=== PATIENT | female | born 1940 | race Caucasian/White ===

== ENCOUNTER 2016-10-29 13:44 | Inpatient (IN) | payer MEDICARE, OTHER ==
[~2016-10-29] VITALS: Ht 167.6 cm; Wt 88.3 kg
[~2016-10-29 13:44] MED LIST: ALEVE220 MG; ALIGN4 MG PO; ASPIRIN EC81 MG; ASPIRIN325 MG PO; BAYER CHEWABLE81 MG PO; BENICAR20 MG; BETAPACE160 MG PO; COZAAR100 MG PO; DEXILANT60 MG PO; EFFIENT10 MG PO; HUMALOG 30100 UNITS/; HUMALOG 30100 UNITS/ SC; HYDROCODON-ACE1 EAC7 PO; IMODIUM2 MG PO; KLONOPIN0.5 MG PO; KLOR-CON 1010 MEQ; KLOR-CON 1010 MEQ PO; LANTUS INSULIN10 ML; LANTUS INSULIN10 ML SC; LANTUS SOL100 UNIT/1 SC; LASIX20 MG PO; METAMUCIL1042 GM; METOPROLOL TART50 MG PO; PLAVIX75 MG PO; PRADAXA150 MG PO; PRAVACHOL40 MG PO; RESTORIL15 MG PO; TRICOR145 MG PO; ULTRAM50 MG PO; VITAMIN B-1000 MCG/M IM; XANAX0.25 MG; XANAX0.25 MG PO; [UNRECOGNIZED DRUG - OTHER]
[2016-10-29 15:02] LABS: BASOPHILS 0.1 % (0.0-2.0); EOSINOPHILS 0 % (0-7); HEMATOCRIT 56.1 % (36.0-48.0); HEMOGLOBIN 17.9 g/dL (12-16); IMMATURE GRANULOCYTES 1.5 % (0-5); LYMPHOCYTES 9.1 % (15-50); MCH 30.6 pg (26.0-34.0); MCHC 31.9 g/dL (31.0-37.0); MCV 95.9 fL (80.0-100.0); MEAN PLATELET VOLUME 10.7 fL (7.4-10.4); MONOCYTES 5.6 % (2-11); NEUTROPHILS 83.7 % (40-80); RBC 5.85 10x6/uL (4.00-5.40); RDW 15.1 % (11.5-14.5); WBC 18.5 10x3/uL (4.8-10.8)
[2016-10-29 15:11] LABS: PLATELET COUNT 301 10x3/uL (130-400)
[2016-10-29 15:14] LABS: APPEARANCE CLEAR (CLEAR); COLOR YELLOW (YELLOW); LEUKOCYTE ESTERASE NEGATIVE (NEGATIVE); NITRITE NEGATIVE (NEGATIVE); PROTEIN 1+ mg/dL (NEGATIVE)
[2016-10-29 15:15] LABS: BILIRUBIN NEGATIVE (NEGATIVE); GLUCOSE 1000 mg/dL (NEGATIVE); KETONE MODERATE mg/dL (NEGATIVE); UROBILINOGEN NORMAL (NORMAL)
[2016-10-29 15:18] LABS: BACTERIA MODERATE /hpf (NONE SEEN); EPITHELIAL CELLS 0-5 /hpf (0-5); WHITE CELLS - URINE 0-5 /hpf (0-5)
[2016-10-29 15:28] LABS: ALBUMIN 3.8 g/dL (3.4-5.0); ALKALINE PHOSPHATASE 126 U/L (46-116); ALT (SGPT) 19 U/L (10-68); BILIRUBIN - TOTAL 0.71 mg/dL (0.2-1.3); CHLORIDE - SERUM 97 mmol/L (98-107); CKMB 2.2 U/L (0.0-3.6); CREATINE KINASE 66 UL (21-215); CREATININE - SERUM 1.6 mg/dL (0.6-1.3); POTASSIUM - SERUM 4.6 mmol/L (3.5-5.1); PROTEIN - SERUM 8.1 g/dL (6.4-8.2); SODIUM 136 mmol/L (136-145); UREA NITROGEN 26 mg/dL (7-18); eGFR NON AFRICAN AMERICAN 33 mL/min (90-120)
[2016-10-29 15:29] LABS: CALC OSMOLALITY 306 mosm/kg (275-300); TROPONIN-I < 0.017 ng/mL (0.000-0.060)
[2016-10-29 15:30] LABS: CARBON DIOXIDE 9.1 mmol/L (21.0-32.0); GLUCOSE 636 mg/dL (74-106)
[2016-10-29 19:00] VITALS: BP 161/57; BP 161/59
--- NOTE | 2016-10-29 19:00 | NUR ---
REC'D REPORT AND COMPLETED ASSESSMENT OF PT, SEE FLOWSHEET FOR ALL FINDINGS. PT DISORIENTED TO SITUATION AND HAS PERIODS OF CONFUSION. FOLLOWS COMMANDS. GLASSESS ON FACE, BOTH UPPPER AND LOWER PARTIALS IN MOUTH. SHALLOW RESPIRATIONS, NASAL CANNULA @ 2L, SPO2 97, CLEAR LUNG SOUNDS. BOWEL SOUNDS HYPOACTIVE X4, PT UNABLE TO HAVE BM SINCE 10/19/16. NPO PER ORDERS WITH THE EXCEPTION OF ICE CHIPS. ORAL CARE COMPLETED. GENERALIZED WEAKNESS NOTED. PT REPOSITIONED IN BED FOR COMFORT WITH BONY PROMINENCES BRIDGED. INSULIN GTT INFUSING @ 7 UNITS/HR, FSBS Q HR PER PROTOCOL. NO S/S OF ACUTE DISTRESS AT THIS TIME. DENIES FURTHER NEEDS AT THIS TIME. CALL LIGHT AND BEDSIDE TABLE WITHIN PT REACH. CPOC.
[2016-10-29 19:59] LABS: ANION GAP 33.2 mmol/L (8-16); CALCIUM 8.9 mg/dL (8.5-10.1); CREATININE - SERUM 1.3 mg/dL (0.6-1.3); POTASSIUM - SERUM 4.9 mmol/L (3.5-5.1)
[2016-10-29 20:00] VITALS: BP 161/57; BP 163/63
[2016-10-29 20:03] LABS: CARBON DIOXIDE 7.7 mmol/L (21.0-32.0)
[2016-10-29 20:48] VITALS: BP 161/57; BMI 29.1
[2016-10-29 21:00] VITALS: BP 132/55; BP 161/57
--- NOTE | 2016-10-29 21:00 | NUR ---
PT HISTORY COMPLETE WITH INFORMATION FROM JOEY ROMERO, PT DAUGHTER. INSULIN GTT ADJUSTED TO 16 UNITS/HR. PT REPOSITIONED FOR COMFORT. VSS, NO C/O PAIN AT THIS TIME. VOICES NO NEEDS AT THIS TIME. CALL LIGHT AND BEDSIDE TABLE WITHIN PT REACH. CPOC.
[2016-10-29 22:00] VITALS: BP 121/53
[2016-10-29 22:24] LABS: ANION GAP 29.9 mmol/L (8-16); CALCIUM 9.1 mg/dL (8.5-10.1); CARBON DIOXIDE 10.9 mmol/L (21.0-32.0); CREATININE - SERUM 1.2 mg/dL (0.6-1.3)
[2016-10-29 22:34] LABS: POTASSIUM - SERUM 3.8 mmol/L (3.5-5.1)
[2016-10-29 23:00] VITALS: BP 105/48
--- NOTE | 2016-10-29 23:00 | NUR ---
REASSESSMENT COMPLETE, SEE FLOWSHEET FOR ALL FINDINGS. NO CHANGES AT THIS TIME. PT REMAINS ON INSULIN GTT AT THIS TIME WITH BS TRENDING DOWN. VSS, DENIES PAIN AT THIS TIME. RESTING QUIETLY WITH UNLABORED RESPIRATIONS. ORAL CARE PROVIDED. PT REPOSITIONED FOR COMFORT. DENIES FURTHER NEEDS AT THIS TIME. CALL LIGHT AND BEDSIDE TABLE WITHIN PT REACH. CPOC.
[2016-10-30] VITALS (17 sets, daily range): BP systolic 86–130; BP diastolic 42–65; Ht 167.6 cm; Wt 88.3 kg
--- NOTE | 2016-10-30 03:00 | NUR ---
REASSESSMENT COMPLETE, SEE FLOWSHEET FOR ALL FINDINGS. PT SLEEPING QUIETLY WITH UNLABORED RESPIRATOINS. VSS, NO S/S OF DISTRESS OR PAIN AT THIS TIME. INSULIN GTT INFUSING. CALL LIGHT AND BEDSIDE TABLE WITHIN PT REACH. CPOC.
[2016-10-30 03:41] LABS: CALCIUM 8.9 mg/dL (8.5-10.1); CREATININE - SERUM 1.4 mg/dL (0.6-1.3); POTASSIUM - SERUM 3.5 mmol/L (3.5-5.1)
[2016-10-30 03:51] LABS: ANION GAP 16.2 mmol/L (8-16); CARBON DIOXIDE 18.3 mmol/L (21.0-32.0)
--- NOTE | 2016-10-30 05:00 | NUR ---
PT RESTING QUIETLY WITH UNLABORED RESPIRATIONS, VSS. PT REPOSITIONED FOR COMFORT. ORAL CARE ADM. DENIES PAIN. DENIES FURTHER NEEDS AT THIS TIME. CALL LIGHT AND BEDSIDE TABLE WITHIN PT REACH. CPOC.
--- NOTE | 2016-10-30 08:11 | HP ---
PATIENT: GARCIA MÁRQUEZ MEDICAL RECORD: [id number] ACCOUNT: [id number] LOCATION:[facility] D.2301 : 38 ADMISSION DATE: 10/29/16 HISTORY AND PHYSICAL EXAMINATION REASON FOR ADMISSION: Confusion. HISTORY OF PRESENT ILLNESS: The patient is a 76-year-old female with history of type 2 diabetes mellitus, ASHD and chronic atrial fibrillation. Her daughter states she has been living at home independently. They went on a holiday trip to see family in [place], but she forgot her insulin. She did not call to refill it. They were gone 4 days when she returned home. Her daughter assumed she resumed her medications. Apparently, she did not. She called the office for an appointment the last 2 days, but has not showed. She apparently brought in by a friend who knows she was very confused today. She presented to the Emergency Room with a blood sugar near 700, acidotic, pH of 7.19 and small serum ketones. She is now admitted to the ICU for treatment of diabetic ketoacidosis due to noncompliance. Her daughter states she has been confused for the last few days and thought she might have a stroke, but did not bring her in. PAST MEDICAL HISTORY: Type 2 diabetes mellitus, chronic AFib flutter, sick sinus syndrome with pacemaker, CAD with left circumflex PTCA 2011, mitral and tricuspid regurgitation, hyperlipidemia, hypertension, depression, postmenopausal and IBS. PAST SURGICAL HISTORY: TAHBSO, pacemaker placement, generator replacement of pacemaker remotely, appendectomy, hemorrhoidectomy, bilateral cataract surgery, repair of deviated septum and PIE MAKER MACHINE stent of the left circumflex in November 2015. FAMILY HISTORY: The patient's sister from myeloma and amyloidosis. ALLERGIES: ACTOS, ALTACE, BENADRYL, CLARITIN, GLUCOPHAGE, KEFLEX, NASONEX, PENICILLIN, ____, SULFA, ULTRAM AND ZOCOR. SOCIAL HISTORY: She is . She lives alone. She has a daughter living in town nonsmoker and nondrinker lifelong. HOME MEDICATIONS: Lasix 20 mg daily, Dexilant 60mg a day, sotalol 160 mg p.o. b.i.d., TriCor 145 daily, pravastatin 40 mg at h.s., Klor-Con 10 mEq a day, Humalog sliding scale, insulin sensitive, alprazolam 0.25 mg t.i.d. p.r.n. anxiety, losartan 100 mg daily, vitamin B12 injection 1 cc every 2 weeks, last Lantus insulin dose was 40 units in the morning, 42 in the evening. She is on Effient 10 mg p.o. q.a.m., metoprolol 25 mg p.o. daily, Klonopin 0.5 mg p.o. daily p.r.n. and tramadol 50 mg q.6 hours p.r.n. pain. REVIEW OF SYSTEMS: GENERAL: Obtained from the daughter generally. She has been well until 2 weeks ago and she is noncompliant. She has been confused for the last several days. No fever documented. HEENT: No recent visual change, speech is somewhat slurred. CARDIAC: No chest pain or palpitations. GASTROINTESTINAL: She has had no bowel movement about 6 or 8 days. She has not had vomiting, but has been nauseated. ENDOCRINE: She has had polyuria and polydipsia. HISTORY AND PHYSICAL [id number] GARCIA MÁRQUEZ PSYCHIATRIC: She has been confused, not anxious. NEUROLOGIC: Confusion with some slurring of her speech intermittently. No localizing motor deficits appreciated. INTEGUMENT: No rash or itching. PHYSICAL EXAMINATION: VITAL SIGNS: Blood pressure 130/60, heart rate 80-90 and irregular, temperature 98 degrees Fahrenheit. GENERAL: The patient is confused, but no acute distress. He responds verbally, but it is hard to understand. HEENT: Normocephalic. Eyes are clear with lens implants OU. Sclerae nonicteric. Oropharynx has dry mucous membranes. NECK: Supple, without bruits or masses. CHEST: Distant breath sounds without wheeze or rales. HEART: Regular rate without murmur. ABDOMEN: Solid, protuberant, decreased bowel sounds, nondistended and nontender. EXTREMITIES: No CC&E. SKIN: She has multiple ____, no petechiae. NEUROLOGIC: She is disoriented to person, place and time. She moves her arms and legs without difficulty. No clonus noted. Speech is somewhat slurred. LABORATORY DATA: Blood gas with pH of 7.14, ____, home oxygen and base excess is -22. Glucose is 619 and potassium 4.5. H&H is 17.8 and 52 respectively. Lipase is 482. Ketones in serum are small. White count is 18.5 and platelet count is 301,000. Alkaline phosphatase is 126. Ketones is moderate in the urine, 10-25 red cells, 0-5 white cells, and moderate bacteria. Abdominal x-ray shows no acute intraabdominal pathology. Chest x-ray, no active disease. ASSESSMENT: 1. Diabetic ketoacidosis due to noncompliance, most likely. 2. Type 2 diabetes mellitus. 3. Metabolic syndrome. 4. History of coronary artery disease. 5. Intermittent atrial fibrillation flutter. 6. Sick sinus syndrome. 7. Depression. 8. Essential hypertension. 9. Mitral and tricuspid regurgitation. 10. Irritable bowel syndrome. PLAN: The patient is being treated emergently in the ER. We will transfer to the ICU for DKA protocol. Blood cultures have been obtained and as well as urine cultures. Empiric Levaquin. Further workup pending clinical course. I discussed her course with her daughter. TRANSINT:[id number] Voice Confirmation ID: [id number] DOCUMENT ID: [id number] HISTORY AND PHYSICAL [id number] GARCIA MÁRQUEZ TIMOTHY MD at 0811 CC: [id number] DICTATION DATE: 10/29/161818 READING COACH: 10/29/16 [address] IN [address] [address]
[2016-10-30 09:56] LABS: ANION GAP 17.2 mmol/L (8-16); CALCIUM 9.3 mg/dL (8.5-10.1); CARBON DIOXIDE 19.8 mmol/L (21.0-32.0); CREATININE - SERUM 1.2 mg/dL (0.6-1.3)
--- NOTE | 2016-10-30 10:42 | NUR ---
PATIENT IS SLEEPING AND UNABLE TO ANSWER QUESTIONS. PATIENT'S NURSE STATES THAT PATIENT IS GROGGY AND HAS DIFFICULTY ANSWERING QUESTIONS WHEN SHE AROUSES DUE TO ELEVATED SODIUM. I ATTEMPTED TO PHONE PATIENT'S DAUGHTER, JOEY, AT [phone] BUT DID NOT GET AN ANSWER. CM TO FOLLOW.
--- NOTE | 2016-10-30 13:25 | NUR ---
Is the patient Alert and Oriented? No 0 * How many steps to enter\exit or inside your home? 2 0 * PCP DR. STONE 0 * [facility] [address] * Preadmission Environment Home with Family 0 * ADLs Independent 0 * Equipment Rolling Walker Wheelchair 0 * List name and contact numbers for known caregivers / representatives who currently or will assist patient after discharge: DAUGHTER: JOEY HOPPER [phone] * Community resources currently utilized None 0 * Additional services required to return to the preadmission environment? No 0 * Can the patient safely return to the preadmission environment? Yes 0 * Has this patient been hospitalized within the prior 30 days at any hospital? No 0 [facility] I SPOKE WITH PATIENT'S DAUGHTER, JOEY. SHE STATES THAT SHE WILL BE AVAILABLE TO DRIVE HER MOTHER HOME AT DISCHARGE. PATIENT LIVES AT HOME ALONE. HER DAUGHTER STATES THAT HER MOTHER HAS SEEMED DEPRESSED SINCE HER . SHE THEN STARTED TO HAVE ISSUE WITH NOT TAKING CARE OF HERSELF. PATIENT'S PCP IS DR. STONE. [facility] [address] SHE HAS A WALKER AND W/C BUT HAS NOT BEEN USING THEM. THERE ARE 2 STEPS TO ENTER PATIENT'S HOME. SHE WILL BE RETURNING HOME BUT HER DAUGHTER WILL BE ASSISTING HER AND STAYING WITH HER IN THE EVENINGS. SHE WOULD LIKE A REFERRAL TO HOME HEALTH AT DISCHARGE.
--- NOTE | 2016-10-30 15:29 | NUR ---
0800 AM ASSESMENT IS COM PLETE SEE FLOW SHEET FOR FINDINGS.. PT IS LETHARGIC BUT ONCE AROUSED WILL ANSWER APPROPRIATLY TO QUESTIONS.. BS DONE INSULIN DRIP DCd AT THIS TIME.. DR STONE IN TO SEE PT AND ORDER RECIEVED.. FSBS PER SS.. 0900 DAUGHTE IN TO SEE PT AND UPDATE IS GIVEN.. PT AND DAUGHTER STATES THAT PT HAS NOT HAD BM FOR 1 WEEK TO 10 DAYS.. SIPS H20 GIVEN PT REFUSES DIET AT HIS TIME STATING NAUSEA.. 0930 PT IS VOMITING WATER.. PARTIAL BATH AND COMPLETE LINEN CHANE IS DONE.. 1030 PT IS RESTING QUIETLY AT THIS TIME 1200 BS DONE AT THIS TIME AND SS INSULIN COVER WITHOUT VISITOR AT THIS OLY.. PT IS REFUSING LEAR LIQUID DIET. SIPS H20 GIEN.. 1400 DR STONE CALLED AND ORERS RECIEVED AFTER UPDATE GIVEN RE PT BOWEL PATTERN.. 1500 WIHTOUT VISITORS.. 1520 MIRALAX GIVEN AND MOM.. PT IS MUCH MORE ALERT AND RESPONSIVE THAN EARLIER IN THE SHIFT.. PT IS WITHOUT C/O
--- NOTE | 2016-10-30 18:16 | NUR ---
1630 PT INCONTINENT OF LIQUID STOOL AFTER TAKING MIRALAX AND MOM.. BATH WITH LINEN CHANGE DONE..INSULIN COVER FOR BS 1700 CLEAR LIQUID DIET SERVED AND PT IS FEEDING SELF.. 1800 75% DIET EATEN... DAUGHTER IN TO SEE PT.. UPDATE IS GIVEN..
--- NOTE | 2016-10-30 20:00 | NUR ---
REPORT CALLED TO TANNER MUNROE. VSS. SR ON THE MONITOR. AOX4. DENIES NEEDS. TRANSFER TO 2201 VIA BED.
--- NOTE | 2016-10-30 21:30 | NUR ---
PATIENT RECEIVED TO ROOM FROM ICU VIA STRETCHER WITH HOSPITAL STAFF. AAOX4. RR EVEN AND UNLABORED. 0 S/S OF DISTRESS. PATIENT STATES PAIN IS A 4/10 IN HER ABDOMEN BUT DOES NOT WANT MEDICATION FOR IT. SHIELDS DRAINING TO GRAVITY. IV TO RIGHT AC S/L. IV TO LEFT AC PATENT AND INFUSING D5 1/2NS @ 100. ORIENTED PATIENT TO ROOM. NO OTHER NEEDS AT THIS TIME.
--- NOTE | 2016-10-30 23:00 | NUR ---
ZOFRAN GIVEN FOR NAUSEA. WILL CONTINUE TO MONITOR.
--- NOTE | 2016-10-30 23:05 | NUR ---
ASSESSMENT COMPLETE. PUT SCD'S ON PATIENT PER ORDER. HEART MEDICATIONS HELD FOR LOW BP. 12 UNITS HUMULIN GIVEN FOR BS OF 242 PER SS. NO OTHER NEEDS AT THIS TIME.
[2016-10-31] VITALS: BP 107/53
[2016-10-31 04:00] VITALS: BP 111/55
[2016-10-31 05:34] LABS: BASOPHILS 0 % (0.0-2.0); EOSINOPHILS 0.1 % (0-7); IMMATURE GRANULOCYTES 0.3 % (0-5); LYMPHOCYTES 9.7 % (15-50); MCH 30.2 pg (26.0-34.0); MCHC 34.2 g/dL (31.0-37.0); MONOCYTES 9.7 % (2-11); NEUTROPHILS 80.2 % (40-80)
[2016-10-31 05:35] LABS: HEMATOCRIT 40.9 % (36.0-48.0); MCV 88.3 fL (80.0-100.0); PLATELET COUNT 175 10x3/uL (130-400); RBC 4.63 10x6/uL (4.00-5.40); WBC 11.6 10x3/uL (4.8-10.8)
[2016-10-31 06:01] LABS: ANION GAP 13.2 mmol/L (8-16); CALCIUM 8.5 mg/dL (8.5-10.1); CARBON DIOXIDE 22.1 mmol/L (21.0-32.0); CREATININE - SERUM 0.9 mg/dL (0.6-1.3)
[2016-10-31 06:05] LABS: POTASSIUM - SERUM 3.3 mmol/L (3.5-5.1)
--- NOTE | 2016-10-31 07:40 | NUR ---
PATIENT RECEIVED IN LOW DENG POSITION RESTING WITH EYES CLOSED. RESPIRATIONS EVEN AND UNLABORED. SIDE RAILS UP X2. BED IN LOW POSITION. CALL LIGHT IN REACH.
[2016-10-31 08:09] VITALS: BP 133/47
--- NOTE | 2016-10-31 08:30 | NUR ---
ALERT IN BED. TOLERATING CLEAR LIQUIDS. SCHEDULED MEDICATION ADMINISTERED WELL PRN ZOFRAN. NO NEEDS VOICED. SIDE RAILS UP X2. BED IN LOW POSITION. CALL LIGHT IN REACH.
--- NOTE | 2016-10-31 09:30 | NUR ---
PATIENT HAD SMALL BM. REFUSES ENEMAS AT THIS TIME. CALL LIGHT IN REACH.
--- NOTE | 2016-10-31 11:18 | NUR ---
ACCU CHECK 312. INSULIN PER SLIDING SCALE. DENIES NEEDS. SIDE RAILS UP X2. BED IN LOW POSITION. CALL LIGHT IN REACH. DAUGHTER AT BEDSIDE.
[2016-10-31 12:12] VITALS: BP 110/49
--- NOTE | 2016-10-31 14:14 | NUR ---
POTASSIUM 3.2, KCL RIDER INTIATED PER PROTOCOL. PATIENT CONTINUE TO REFUSE ORDERED ENEMA. AGREEABLE TO TRY PRUNE JUICE. DENIES NEEDS. SIDE RAILS UP X2. BED IN LOW POSITION. CALL LIGHT IN REACH.
[2016-10-31 16:45] VITALS: BP 136/66
--- NOTE | 2016-10-31 17:00 | NUR ---
PATIENT RESTING QUIETLY WITH EYES CLOSED. RESPIRATIONS EVEN AND UNLABORED. WAKES EASY. KCL RIDER #3 INITIATED. TOLERATING WELL. DENIES NEEDS. SIDE RAILS UP X2. BED IN LOW POSITION. CALL LIGHT IN REACH.
--- NOTE | 2016-10-31 18:15 | NUR ---
PATIENT UP TO BSC ASSIST X1. CALL LIGHT IN REACH. NURSE AID AT BEDSIDE. DENIES NEEDS.
--- NOTE | 2016-10-31 19:00 | NUR ---
PATIENT SLEEPING SUPINE IN BED. HOB 20 DEGREES. AROUSES TO VOICE. RR EVEN AND UNLABORED. 0 S/S OF DISTRESS. DENIES PAIN AT THIS TIME. IV TO RIGHT AC S/L WITH NO REDNESS OR SWELLING. IV TO LEFT AC PATENT AND INFUSING D51/2 @ 100. SHIELDS DRAINING TO GRAVITY. SCD'S IN ROOM BUT OFF. SRX2. BED LOW. CALL LIGHT WITHIN REACH.
[2016-10-31 20:30] VITALS: BP 116/60
[2016-11-01 00:08] VITALS: BP 129/57
[2016-11-01 04:30] VITALS: BP 110/50
[2016-11-01 05:02] LABS: BASOPHILS 0.2 % (0.0-2.0); EOSINOPHILS 0.5 % (0-7); HEMATOCRIT 39.3 % (36.0-48.0); HEMOGLOBIN 13.3 g/dL (12-16); IMMATURE GRANULOCYTES 0.2 % (0-5); LYMPHOCYTES 25.6 % (15-50); MCH 30.1 pg (26.0-34.0); MCHC 33.8 g/dL (31.0-37.0); MCV 88.9 fL (80.0-100.0); MEAN PLATELET VOLUME 9.9 fL (7.4-10.4); MONOCYTES 13.9 % (2-11); NEUTROPHILS 59.6 % (40-80); PLATELET COUNT 155 10x3/uL (130-400); RBC 4.42 10x6/uL (4.00-5.40); RDW 15.6 % (11.5-14.5)
[2016-11-01 05:07] LABS: WBC 6.5 10x3/uL (4.8-10.8)
[2016-11-01 05:20] LABS: CALCIUM 8.8 mg/dL (8.5-10.1); CARBON DIOXIDE 25.3 mmol/L (21.0-32.0); CHLORIDE - SERUM 109 mmol/L (98-107); CREATININE - SERUM 0.7 mg/dL (0.6-1.3); SODIUM 142 mmol/L (136-145); eGFR NON AFRICAN AMERICAN 86 mL/min (90-120)
[2016-11-01 05:23] LABS: CALC OSMOLALITY 285 mosm/kg (275-300); GLUCOSE 159 mg/dL (74-106); UREA NITROGEN 12 mg/dL (7-18)
--- NOTE | 2016-11-01 07:00 | NUR ---
PATIENT RECEIVED IN LOW DENG POSITION RESTING WITH EYES CLOSED. RESPIRATIONS EVEN AND UNLABORED. SIDE RAILS UP X2. BED IN LOW POSITION. CALL LIGHT IN REACH.
[2016-11-01 08:30] VITALS: BP 112/53
--- NOTE | 2016-11-01 08:43 | NUR ---
PATIENT REPOSITIONED IN BED. WELL TOLERATED. BREAKFAST TRAY SET UP. SCHEDULED MEDICATION ADMINISTERED. DENIES NEEDS. SIDE RAILS UP X2. BED IN LOW POSITION. CALL LIGHT IN REACH.
--- NOTE | 2016-11-01 11:04 | NUR ---
ALERT IN BED WITH DAUGHTER PRESENT. ACCU CHECK 199. INSULIN PER SLIDING SCALE. DENIES NEEDS. BED IN LOW POSITION. CALL LIGHT IN REACH.
[2016-11-01 12:30] VITALS: BP 117/58
--- NOTE | 2016-11-01 13:35 | NUR ---
PATIENT UP AMBULATING IN HALLWAY WITH PT. NO SIGNS OF DISTRESS NOTED. WILL CONTINUE TO MONITOR.
[2016-11-01 15:30] VITALS: BP 111/52
--- NOTE | 2016-11-01 16:28 | NUR ---
ACCU CHECK 165. 8 UNITS PER SLIDING SCALE. DENIES NEEDS. BED IN LOW POSITION. CALL LIGHT IN REACH.
--- NOTE | 2016-11-01 19:25 | NUR ---
PT RECEIVED SLEEPING. NO SIGNS OF DISTRESS. RESPIRATIONS EVEN AND UNLABORED. BED LOW, CALL LIGHT IN REACH.
[2016-11-01 20:00] VITALS: BP 130/73
--- NOTE | 2016-11-01 21:09 | NUR ---
PT RESTING IN BED. NIGHT MEDS GIVEN. DIABETIC SNACK GIVEN. DENIES NEEDS AT THIS TIME. WILL MONITOR.
--- NOTE | 2016-11-01 23:21 | NUR ---
PT SLEEPING. NO SIGNS OF DISTRESS. BED LOW, CALL LIGHT IN REACH.
[2016-11-02] VITALS: BP 124/66
--- NOTE | 2016-11-02 01:58 | NUR ---
PT SLEEPING. NO SIGNS OF DISTRESS. BED LOW, CALL LIGHT IN REACH.
[2016-11-02 04:00] VITALS: BP 111/52
[2016-11-02 06:30] LABS: CALC OSMOLALITY 288 mosm/kg (275-300); CALCIUM 8.7 mg/dL (8.5-10.1); CHLORIDE - SERUM 110 mmol/L (98-107); CREATININE - SERUM 0.7 mg/dL (0.6-1.3); GLUCOSE 120 mg/dL (74-106); MAGNESIUM - SERUM 1.9 mg/dL (1.8-2.4); SODIUM 145 mmol/L (136-145); UREA NITROGEN 11 mg/dL (7-18); eGFR NON AFRICAN AMERICAN 86 mL/min (90-120)
[2016-11-02 06:32] LABS: POTASSIUM - SERUM 3.3 mmol/L (3.5-5.1)
--- NOTE | 2016-11-02 07:25 | NUR ---
PATEINT RECEIVED IN LOW DENG POSITION READING NEWSPAPER. NO SIGNS OF DISTRESS NOTED. DENIES NEEDS. SIDE RAILS UP X2. BED IN LOW POSITION. CALL LIGHT IN REACH.
[2016-11-02 08:13] VITALS: BP 132/62
--- NOTE | 2016-11-02 08:25 | NUR ---
PATIENT REPOSITIONED IN BED. WELL TOLERATED. BREAKFAST TRAY SET UP. SCHEDULED MEDICATION ADMINISTERED. ELECTROLYTES REPLACED PER PROTOCOL. SIDE RAILS UP X2. BED IN LOW POSITION. CALL LIGHT IN REACH. SCDS ON BILATERALLY.
--- NOTE | 2016-11-02 11:27 | NUR ---
ACCU CHECK 173. INSULIN PER SLIDING SCALE. DENIES FURTHER NEEDS. SIDE RAILS UP X2. BED IN LOW POSITION. CALL LIGHT IN REACH.
[2016-11-02 12:46] VITALS: BP 112/64
--- NOTE | 2016-11-02 13:27 | NUR ---
SITTING UP IN CHAIR AT BEDSIDE. NO SIGNS OF DISTRESS NOTED. CALL LIGHT IN REACH.
--- NOTE | 2016-11-02 16:20 | NUR ---
ACCU CHECK 201. INSULIN PER SLIDING SCALE. SIDE RAILS UP X2. BED IN LOW POSITINON. CALL LIGHT IN REACH.
[2016-11-02 16:42] VITALS: BP 129/50
--- NOTE | 2016-11-02 17:20 | NUR ---
SITTING UP IN CHAIR AT BEDSIDE EATING DINNER. TOLERATING WELL. CALL LIGHT IN REACH. DENIES NEEDS.
--- NOTE | 2016-11-02 19:20 | NUR ---
PATIENT RESTING IN BED WATCHING TV. NO SIGNS OF DISTRESS NOTED AT THIS TIME. ASSISTED TO BSC WITH MINIMAL ASSIST. DENIES ANY NEEDS AT THIS TIME. BED LOW. CALL LIGHT IN REACH
[2016-11-02 21:00] VITALS: BP 128/59
[2016-11-03 01:00] VITALS: BP 99/53
--- NOTE | 2016-11-03 02:30 | NUR ---
PT IN BED WITH NO NEEDS AT THIS TIME. IV'S TO RIGHT AND LEFT AC'S PATENT AND SALINE LOC AT THIS TIME. SIDE RAILS ARE UP X 2. BED IS LOW. CALL LIGHT IS IN REACH.
[2016-11-03 05:00] VITALS: BP 102/66
[2016-11-03 05:23] LABS: CALCIUM 8.5 mg/dL (8.5-10.1); CARBON DIOXIDE 29.9 mmol/L (21.0-32.0); CHLORIDE - SERUM 111 mmol/L (98-107); CREATININE - SERUM 0.6 mg/dL (0.6-1.3); SODIUM 148 mmol/L (136-145); UREA NITROGEN 9 mg/dL (7-18); eGFR NON AFRICAN AMERICAN > 90 mL/min (90-120)
[2016-11-03 05:26] LABS: PHOSPHOROUS 3.3 mg/dL (2.5-4.9)
[2016-11-03 05:27] LABS: CALC OSMOLALITY 290 mosm/kg (275-300); GLUCOSE 64 mg/dL (74-106); POTASSIUM - SERUM 3.5 mmol/L (3.5-5.1)
[2016-11-03 08:15] VITALS: BP 150/68
--- NOTE | 2016-11-03 09:02 | NUR ---
SCHEDULED MEDICATIONS ADMINISTERED AT THIS TIME. DENIES PAIN. ASSESSMENT PERFORMED PER FLOWSHEET. SHIELDS CATHETER D/C WITH CATH TIP INTACT PER PHYSICIAN ORDER. PT TOLERATED WITHOUT COMPLAINTS. IV TO RIGHT AND LEFT AC BOTH PATENT AND SALINE LOCKED. DENIES NEEDS AT CURRENT TIME. CALL LIGHT IN REACH, BED IN LOW POSITION AND LOCKED. SCD'S OFF PER PT. WILL CONTINUE WITH PLAN OF CARE.
--- NOTE | 2016-11-03 11:04 | NUR ---
NUTRITION MONITORING & EVAL TOLERATING ADA DIET. 100% INTAKE BREAKFAST. WILL CONTINUE TO MONITOR PT PROGRESS. PROVIDE ADA DIET. RD FOLLOWING
--- NOTE | 2016-11-03 11:15 | NUR ---
AMBULATING IN HALLWAY WITH PHYSICAL THERAPY AT THIS TIME. WILL CONTINUE WITH PLAN OF CARE.
[2016-11-03 12:22] VITALS: BP 159/71
--- NOTE | 2016-11-03 13:00 | NUR ---
PT HAS NOT VOIDED SINCE SHIELDS REMOVAL. PROVIDED PT WITH FRESH ICE WATER AND ENCOURAGED HER TO FORCE FLUIDS. PT VERBALIZED UNDERSTANDING. CALL LIGHT IN REACH, UP IN CHAIR PER HERSELF AT THIS TIME. WILL CONTINUE WITH PLAN OF CARE.
[2016-11-03 16:45] VITALS: BP 96/54
--- NOTE | 2016-11-03 17:40 | NUR ---
VOIDED IN COMMODE WITHOUT DIFFICULTY AT THIS TIME. DENIES NEEDS. CALL LIGHT IN REACH, WILL CONTINUE WITH PLAN OF CARE.
[2016-11-03 20:58] VITALS: BP 151/64
[2016-11-04 01:48] VITALS: BP 147/613
--- NOTE | 2016-11-04 02:10 | NUR ---
PT IN BED WITH NO NEEDS. IV'S TO RIGHT AND LEFT AC'S PATENT AND SALINE LOC. SIDE RAILS ARE UP X 2. BED IS LOW. CALL LIGHT IS IN REACH.
[2016-11-04 04:41] VITALS: BP 123/52
[2016-11-04 05:48] LABS: CARBON DIOXIDE 30.4 mmol/L (21.0-32.0); CHLORIDE - SERUM 107 mmol/L (98-107); CREATININE - SERUM 0.7 mg/dL (0.6-1.3); GLUCOSE 83 mg/dL (74-106); SODIUM 144 mmol/L (136-145); eGFR NON AFRICAN AMERICAN 86 mL/min (90-120)
[2016-11-04 05:49] LABS: CALC OSMOLALITY 283 mosm/kg (275-300); POTASSIUM - SERUM 3.4 mmol/L (3.5-5.1); UREA NITROGEN 6 mg/dL (7-18)
--- NOTE | 2016-11-04 08:40 | NUR ---
IV IN LEFT AC AND RIGHT AC NOT WORKING. D/C WITH CATH INTACT. TRIED TO START IV X'S 1 ATTEMPT TO RIGHT LOWER FOREARM, UNSUCCESSFUL. PATIENT VERY NAUSEOUS. ADMINISTERED PHENERGAN RECALLY.
[2016-11-04 08:57] VITALS: BP 144/72
--- NOTE | 2016-11-04 09:56 | NUR ---
CM REASSESSMENT NOTE: CM MET WITH PATIENT REGARDING D/C NEEDS AND PLANS. PATIENT CHOSE [facility] AND SIGNED THE MARY FORM. REFERRAL HAS BEEN SENT TO [place].
--- NOTE | 2016-11-04 12:51 | NUR ---
IV STARTED BY TANNER CAREY X'S 2 ATTEMPTS. 22G TO LEFT HAND
[2016-11-04 13:06] VITALS: BP 144/64
--- NOTE | 2016-11-04 14:00 | NUR ---
PATIENT STATED SHE STILLS FEELS NAUSEOUS. PATIENT DENIES FEELING ANY LESS NAUSEOUS THEN BEFORE TAKING THE ZOFRAN. OFFERED PATIENT PHENERGAN, PATIENT STATED "IT DID NOT HELP WHEN I TOOK IT THIS MORNING I DO NOT SEE ANY REASON FOR TAKING IT AGAIN."
[2016-11-04 17:18] VITALS: BP 134/45
--- NOTE | 2016-11-04 19:15 | NUR ---
RECIEVED SHIFT REPORT. PT IS LYING IN BED. ALERT AND ORIENTED AND ABLE TO VERBALIZE NEEDS. IV IS PATENT AND FLUIDS ARE RUNNING PER ORDER. SCD'S OFF AT THIS TIME. PT IS AMBULATORY BUT WAS INSTRUCTED TO CALL FOR ANY ASSISTANCE NEEDED. PT DENIES ANY PAIN AT THIS TIME. NO NEEDS ARE VERBALIZED AT THIS TIME. WILL CONTINUE TO MONITOR. SIDE RAILS ARE UP X 2. BED IS IN LOWEST POSITION. CALL LIGHT IS WITHIN REACH.
[2016-11-04 21:00] VITALS: BP 121/64
--- NOTE | 2016-11-04 22:39 | NUR ---
SHIFT ASSESSMENT COMPLETED. NIGHT MEDS GIVEN WITH NO PROBLEMS. PT RECIEVED 12 UNITS INSULIN PER SLIDING SCALE. NO NEEDS ARE VOICED. WILL MONITOR. SIDE RAILS X 2. BED LOW. CALL LIGHT IN REACH.
[2016-11-05 01:00] VITALS: BP 132/75
[2016-11-05 05:00] VITALS: BP 130/74
[2016-11-05 06:10] LABS: BASOPHILS 0.1 % (0.0-2.0); EOSINOPHILS 1.2 % (0-7); HEMATOCRIT 41.7 % (36.0-48.0); HEMOGLOBIN 13.5 g/dL (12-16); IMMATURE GRANULOCYTES 1.3 % (0-5); LYMPHOCYTES 10.2 % (15-50); MCH 29.9 pg (26.0-34.0); MCHC 32.4 g/dL (31.0-37.0); MCV 92.5 fL (80.0-100.0); MEAN PLATELET VOLUME 10.7 fL (7.4-10.4); MONOCYTES 14.8 % (2-11); NEUTROPHILS 72.4 % (40-80); RBC 4.51 10x6/uL (4.00-5.40); RDW 15.6 % (11.5-14.5); WBC 6.8 10x3/uL (4.8-10.8)
[2016-11-05 06:22] LABS: PLATELET COUNT 193 10x3/uL (130-400)
[2016-11-05 07:11] LABS: ALBUMIN 2.3 g/dL (3.4-5.0); ANION GAP 11.4 mmol/L (8-16); BILIRUBIN - TOTAL 0.47 mg/dL (0.2-1.3); CALCIUM 8.1 mg/dL (8.5-10.1); CARBON DIOXIDE 29.8 mmol/L (21.0-32.0); CREATININE - SERUM 0.8 mg/dL (0.6-1.3); PROTEIN - SERUM 5.3 g/dL (6.4-8.2)
[2016-11-05 07:13] LABS: POTASSIUM - SERUM 3.2 mmol/L (3.5-5.1)
[2016-11-05 08:47] VITALS: BP 126/56
[2016-11-05 12:30] VITALS: BP 121/62
[2016-11-05 17:29] VITALS: BP 136/65
--- NOTE | 2016-11-05 20:15 | NUR ---
REPORT RECEIVED AND CARE ASSUMED. RESTING QUIETLY IN BED WATCHING TV. SHE DENIES ANY NAUSEA AT THIS TIME. ZOFRAN DRIP AND IV FLUIDS PATENT IN LEFT HAND. SHIFT ASSESSMENT COMPLETED. SIDE RAILS UP X 2. BED IS IN LOWEST POSITION. CALL LIGHT IN EASY REACH. WILL CONTINUE TO MONITOR.
[2016-11-05 21:00] VITALS: BP 123/66
[2016-11-06 01:00] VITALS: BP 115/51
[2016-11-06 05:20] VITALS: BP 110/52
[2016-11-06 05:44] LABS: ANION GAP 8.8 mmol/L (8-16); CALCIUM 7.7 mg/dL (8.5-10.1); CARBON DIOXIDE 31.7 mmol/L (21.0-32.0); CREATININE - SERUM 0.8 mg/dL (0.6-1.3)
[2016-11-06 06:24] LABS: POTASSIUM - SERUM 2.5 mmol/L (3.5-5.1)
--- NOTE | 2016-11-06 07:49 | NUR ---
received pt report. no other needs at this time. will continue plan of care. no other needs at this time. will continue plan of care.
[2016-11-06 09:08] VITALS: BP 141/76
--- NOTE | 2016-11-06 09:56 | NUR ---
PT IS ALERT. ASSESSMENT DONE PER FLOWSHEET. NO CO PAIN AT THIS TIME. WILL CONTINUE TO MONITOR. NO OTHER NEEDS.
--- NOTE | 2016-11-06 13:00 | NUR ---
PT SHOWS NO SS OF DISTRESS AT THIS TIME. WILL CONTINUE TO MONITOR.
[2016-11-06 16:19] VITALS: BP 125/64
[2016-11-06 21:00] VITALS: BP 139/55
[2016-11-07 01:00] VITALS: BP 140/66
[2016-11-07 05:00] VITALS: BP 112/53
--- NOTE | 2016-11-07 07:00 | NUR ---
REPORT RECIEVED ASSUMED CARE. PATIENT IN BED WITH IV INTACT. NO COMPLAINTS. CALL LIGHT WITHIN REACH.
[2016-11-07 07:25] LABS: ALBUMIN 2.5 g/dL (3.4-5.0); ALKALINE PHOSPHATASE 69 U/L (46-116); ALT (SGPT) 41 U/L (10-68); CALCIUM 7.7 mg/dL (8.5-10.1); CARBON DIOXIDE 29.9 mmol/L (21.0-32.0); CHLORIDE - SERUM 107 mmol/L (98-107); CREATININE - SERUM 0.7 mg/dL (0.6-1.3); PROTEIN - SERUM 5.1 g/dL (6.4-8.2); SODIUM 144 mmol/L (136-145); eGFR NON AFRICAN AMERICAN 86 mL/min (90-120)
[2016-11-07 07:26] LABS: CALC OSMOLALITY 280 mosm/kg (275-300); GLUCOSE 69 mg/dL (74-106); UREA NITROGEN 2 mg/dL (7-18)
[2016-11-07 08:38] VITALS: BP 111/54
--- NOTE | 2016-11-07 11:45 | NUR ---
PATIENT IV LEAKING. WILL HAVE TO BE REMOVED. PATIENT VERBALIZED UNDERSTANDING.
[2016-11-07 11:56] VITALS: BP 127/73
--- NOTE | 2016-11-07 12:40 | NUR ---
RESUME PLAN OF CARE. REPORT FROM TANNER TINSLEY. ALERT AND ORIENTED X4. FSBS 148, NO COVERAGE REQUIRED. DENIES PAIN OR SOB. EXPRESSES WANTING TO GO HOME. CONTINUE PLAN OF CARE. BED LOCKED AND LOW. CALL LIGHT IN REACH. TWO SIDERAILS UP.
--- NOTE | 2016-11-07 12:57 | NUR ---
PATIENT IN BED WITH NO COMPLAINTS. REPORT GIVEN TO OLIVIA HART.
[2016-11-07 15:46] VITALS: BP 103/78
[2016-11-07 20:00] VITALS: BP 110/47
[2016-11-08] VITALS: BP 119/50
[2016-11-08 04:00] VITALS: BP 98/54
[2016-11-08 05:53] LABS: CALCIUM 7.4 mg/dL (8.5-10.1); CARBON DIOXIDE 30.4 mmol/L (21.0-32.0); CHLORIDE - SERUM 106 mmol/L (98-107); CREATININE - SERUM 0.7 mg/dL (0.6-1.3); SODIUM 142 mmol/L (136-145); eGFR NON AFRICAN AMERICAN 86 mL/min (90-120)
[2016-11-08 06:06] LABS: CALC OSMOLALITY 281 mosm/kg (275-300); GLUCOSE 134 mg/dL (74-106); POTASSIUM - SERUM 3.5 mmol/L (3.5-5.1); UREA NITROGEN 5 mg/dL (7-18)
[2016-11-08] MEDS ORDERED: LEVEMIR100 U/M1 SC ×2 (07:07→07:14)
[2016-11-08] MEDS ORDERED: KLOR-CON 1010 MEQ PO (07:14)
[2016-11-08 08:38] VITALS: BP 112/52
--- NOTE | 2016-11-08 11:50 | NUR ---
PATIENT RECIEVED DISCHARGE INSTRUCTIONS. VERBALIZED UNDERSTANDING. NO QUESTIONS AT THIS TIME. VANDANAIR EXPLAINED TO PATIENT. IV REMOVED WITH CATH TIP INTACT. FAMILY AT BEDSIDE. AWAITING WC FOR DISCHARGE.
--- NOTE | 2016-11-08 18:33 | NUR ---
Late Entry Patient discharged to home w/ [facility]. Two of her nieces provided transportation to home today. TC to [facility] this PM. Spoke with Kisha from [facility], the on-call nurse. Provided brief report. Faxed updated referral. She will f/u w/ the patient regarding visit date. Weekday CM forwarded referral on 11/04/16.
--- NOTE | 2016-11-24 06:09 | DS ---
PATIENT:GARCIA MÁRQUEZ :36 MEDICAL RECORD: [id number] DISCHARGE SUMMARY ADMISSION DATE: 10/29/16 DISCHARGE DATE: 11/08/16 DISCHARGE DIAGNOSES: Diabetic ketoacidosis, hypokalemia, altered mental status, hypertension, and diarrhea. HOSPITAL COURSE: A 76-year-old female with metabolic syndrome, admitted after noncompliance of medications. She was concerned she might have had a stroke. Her CT ruled that out. She was placed in the ICU. She was on IV insulin drip for a short period converted fairly quickly, was admitted to the floor in 24 hours. She then developed recurrent nausea and vomiting. Abdominal series were unremarkable. She was placed on Zofran drip with good improvement in her symptoms. She has now been asymptomatic for the last 48 hours, tolerating full diet for 24 hours and wishes discharge. She is able to walk 500 feet with a PT, therefore, did not qualify for inpatient rehabilitation. She is more alert and oriented at this time. Her daughter is her primary wastewater technician, had been able to help with her transition today with home health. DISCHARGE DIET: A 2500-calorie ADA. DISCHARGE MEDICATION: Levemir insulin 20 units subQ b.i.d. a.c., Lasix 20 mg p.o. q.a.m., Dexilant 60 mg p.o. daily, vitamin B12 at 1000 mcg IM every 14 days, Cozaar 100 mg p.o. daily, lisinopril, Humalog 15 units subQ a.c. meals per sliding scale, Lopressor 50 mg p.o. b.i.d., Effient 10 mg p.o. daily, ____ 2 mg after a loose stool p.r.n., Klonopin 0.5 mg p.o. daily p.r.n. anxiety, tramadol 50 mg q.6 hours p.r.n. pain, Klor-Con 10 mEq p.o. t.i.d. p.c. Home health to see the patient in 48 hours for medication compliance. BMP with results to me, RTC in 2 weeks. Outpatient PT consult as well. TRANSINT:[id number] Voice Confirmation ID: [id number] DOCUMENT ID: [id number] ALLEY STONE MD at 0609 CC: [id number] DICTATION DATE: 11/08/16 0717 MACARONI PRESS OPERATOR: 11/08/16 0933 DIS IN 11/08/16 [facility] [address] [id number]
== END 2016-11-08 12:00 | disposition home health service (06) | DRG 638 ==
LOC: D.ER 13:44 → D.ICU 17:06 → D.MS 17:06
PROVIDERS: Emergency Medicine Emergency Medical Services; ADMIT Family Medicine
DX: E13.10 Other specified diabetes mellitus with ketoacidosis without coma (principal); I48.92 Unspecified atrial flutter; Z79.4 Long term (current) use of insulin; Z91.19 Patient's noncompliance with other medical treatment and regimen; E88.81 Metabolic syndrome and other insulin resistance; K58.9 Irritable bowel syndrome, unspecified; I48.91 Unspecified atrial fibrillation; F32.9 Major depressive disorder, single episode, unspecified; I10 Essential (primary) hypertension; I08.1 Rheumatic disorders of both mitral and tricuspid valves; E87.6 Hypokalemia; I25.10 Atherosclerotic heart disease of native coronary artery without angina pectoris; E78.5 Hyperlipidemia, unspecified; R41.0 Disorientation, unspecified; Z95.5 Presence of coronary angioplasty implant and graft; Z78.0 Asymptomatic menopausal state; Z95.0 Presence of cardiac pacemaker

== ENCOUNTER 2016-12-09 11:30 | Inpatient (IN) | payer MEDICARE, OTHER ==
[~2016-12-09] VITALS: Ht 167.6 cm; Wt 90.7 kg
[~2016-12-09 11:30] MED LIST changes: +LEVEMIR100 U/M1 SC
[2016-12-09 13:36] LABS: BASOPHILS 0.2 % (0.0-2.0); HEMATOCRIT 40.4 % (36.0-48.0); HEMOGLOBIN 13.8 g/dL (12-16); IMMATURE GRANULOCYTES 0.5 % (0-5); LYMPHOCYTES 26.3 % (15-50); MCHC 34.2 g/dL (31.0-37.0); MCV 90.8 fL (80.0-100.0); MEAN PLATELET VOLUME 9.9 fL (7.4-10.4); MONOCYTES 8.3 % (2-11); NEUTROPHILS 62.7 % (40-80); RBC 4.45 10x6/uL (4.00-5.40); RDW 13.9 % (11.5-14.5); WBC 8.3 10x3/uL (4.8-10.8)
[2016-12-09 13:44] LABS: KETONE - SERUM NEGATIVE (NEGATIVE)
[2016-12-09 13:53] LABS: ALBUMIN 3.5 g/dL (3.4-5.0); ALKALINE PHOSPHATASE 116 U/L (46-116); ALT (SGPT) 18 U/L (10-68); BILIRUBIN - TOTAL 0.72 mg/dL (0.2-1.3); CALCIUM 8.8 mg/dL (8.5-10.1); CARBON DIOXIDE 26.5 mmol/L (21.0-32.0); CHLORIDE - SERUM 101 mmol/L (98-107); PROTEIN - SERUM 7.1 g/dL (6.4-8.2); SODIUM 136 mmol/L (136-145); UREA NITROGEN 15 mg/dL (7-18); eGFR NON AFRICAN AMERICAN 57 mL/min (90-120)
[2016-12-09 13:58] LABS: CALC OSMOLALITY 289 mosm/kg (275-300); GLUCOSE 400 mg/dL (74-106)
[2016-12-09 13:59] LABS: PLATELET COUNT 233 10x3/uL (130-400)
[2016-12-09 14:17] LABS: APPEARANCE CLOUDY (CLEAR); BACTERIA FEW /hpf (NONE SEEN); BILIRUBIN NEGATIVE (NEGATIVE); COLOR YELLOW (YELLOW); EPITHELIAL CELLS 0-5 /hpf (0-5); GLUCOSE 1000 mg/dL (NEGATIVE); KETONE NEGATIVE (NEGATIVE); LEUKOCYTE ESTERASE 1+ (NEGATIVE); NITRITE NEGATIVE (NEGATIVE); PROTEIN TRACE mg/dL (NEGATIVE); RED CELLS - URINE 0-5 /hpf (0-5); UROBILINOGEN NORMAL (NORMAL); WHITE CELLS - URINE 25-50 /hpf (0-5); YEAST >1+ /hpf (NONE SEEN)
--- NOTE | 2016-12-09 17:23 | NUR ---
PATIENT RECEIVED TO FLOOR FROM ER VIA WHEELCHAIR. RESPIRATIONS EVEN AND UNLABORED. FAMILY AT BEDSIDE. ORIENTED TO ROOM. BED IN LOW POSITION. SIDE RAILS UP X2. CALL LIGHT IN REACH.
[2016-12-09] MEDS ORDERED: LEVEMIR100 U/M1 SC (17:26)
[2016-12-09] MEDS ORDERED: LINZESS145 MCG PO (17:28)
--- NOTE | 2016-12-09 17:48 | NUR ---
IVF AND IV ABX INITIATED PER ORDERS. IV TO LEFT HAND PATENT. DENIES NEEDS. SIDE RAILS UP X2. BED IN LOW POSITION. CALL LIGHT IN REACH.
[2016-12-09 18:12] VITALS: BP 145/53; BMI 32.3
--- NOTE | 2016-12-09 18:30 | NUR ---
PATIENT C/O ITCHING AT IV SITE AND LEFT ARM. IV LEVAQUIN STOPPED. PHYSICIAN NOTIFIED. NEW ORDERS RECEIVED.
--- NOTE | 2016-12-09 18:39 | NUR ---
IVF AND IV ABX INITIATED TO LEFT HAND IV. DENIES NEEDS. SIDE RAILS UP X2. BED IN LOW POSITION. CALL LIGHT IN REACH.
--- NOTE | 2016-12-09 18:40 | NUR ---
SCDS ON BILATERALLY. USE EXPLAINED STATES UNDERSTANDING.
--- NOTE | 2016-12-09 19:30 | NUR ---
RECIEVED SHIFT REPORT. PT IS LYING IN BED. ALERT AND ORIENTED AND ABLE TO VERBALIZE NEEDS. IV IS PATENT AND FLUIDS ARE RUNNING PER ORDER. SCD'S ON. PT IS AMBULATORY WITH ASSISTANCE BUT IS ABLE TO TURN SELF IN BED FOR COMFORT AND SKIN CARE. PT DENIES ANY PAIN AT THIS TIME. NO NEEDS ARE VERBALIZED AT THIS TIME. WILL CONTINUE TO MONITOR. SIDE RAILS ARE UP X 2. BED IS IN LOWEST POSITION. CALL LIGHT IS WITHIN REACH.
[2016-12-09 20:59] VITALS: BP 140/67
--- NOTE | 2016-12-09 21:09 | NUR ---
SHIFT ASSESSMENT COMPLETED. NIGHT MEDS GIVEN WITH NO PROBLEMS. PT RECIEVED 10 UNITS INSULIN PER SLIDING SCALE FOR ENTW=409. NO NEEDS ARE VOICED. WILL MONITOR. SIDE RAILS X 2. BED LOW. CALL LIGHT IN REACH.
[2016-12-10 00:24] VITALS: BP 120/62
[2016-12-10 05:33] VITALS: BP 118/58
--- NOTE | 2016-12-10 05:39 | HP ---
PATIENT: GARCIA MÁRQUEZ MEDICAL RECORD: [id number] ACCOUNT: [id number] LOCATION:D.MS [id number] : 38 ADMISSION DATE: 12/09/16 HISTORY AND PHYSICAL EXAMINATION REASON FOR ADMISSION: Uncontrolled diabetes and dysuria. HISTORY OF PRESENT ILLNESS: The patient is a 76-year-old female, type 2 diabetic, who was hospitalized at this hospital over a month ago. At that time, she had been very noncompliant with medications. Diabetes was uncontrolled and had abdominal pain for approximately a week. She gradually improved, did have UTI that was Nissa. On discharge, she went to the [facility] and was there for 10 days and really improved her physical status. Back home over the last week, home health noticed this morning her blood sugar was over 500, ____ not taking her medications as prescribed. Her family had been trying to help, going about twice a day, but is obvious she was noncompliant. She presented to the Emergency Room with blood sugar in excess of 500 and a recurrent UTI. She was somewhat confused. She is now being admitted for possible urosepsis and control of her diabetes. PAST MEDICAL HISTORY: Type 2 diabetes mellitus, hyperlipidemia, chronic atrial fibrillation/flutter, sick sinus syndrome with pacemaker, CAD with left circumflex PTCA 2011, hypertension, depression, postmenopausal status, IBS, mitral and tricuspid regurgitation. PAST SURGICAL HISTORY: Pacemaker placement, generator replacement, appendectomy, hemorrhoidectomy, bilateral cataract surgery, repair of deviated nasal septum, PTCA stent of the left circumflex [facility] November 2015, [facility]. FAMILY HISTORY: The patient's sister from amyloidosis and myeloma. ALLERGIES: ACTOS, ALTACE, BENADRYL, CLARITIN, GLUCOPHAGE, KEFLEX, NASONEX, PENICILLIN, SULFA, ULTRAM, AND ZOCOR. SOCIAL HISTORY: She is . She lives alone, but her daughter tends to check on her twice daily. She is a lifelong nonsmoker and nondrinker. HOME MEDICATIONS: Levemir 25 units subQ b.i.d. a.c., Lasix 20 mg p.o. q.a.m., Dexilant 60 mg daily, sotalol 160 mg b.i.d., TriCor 145 a day, pravastatin 40 mg at h.s., Klor-Con 10 mEq t.i.d. p.c., Effient 10 mg p.o. daily, losartan 100 mg p.o. daily, metoprolol 50 mg b.i.d., Imodium 2 mg after loose stool p.r.n., Linzess 145 mcg capsule p.o. q.a.m. p.r.n. constipation, Humalog low resistance scale, vitamin B12 of 1000 mcg IM every 14 days. REVIEW OF SYSTEMS: GENERAL: Fatigue with poor appetite. HEENT: No recent visual change, sinus congestion, sore throat or hearing difficulty. RESPIRATORY: No severe cough. CARDIAC: No exertional chest pain, claudication or edema. GASTROINTESTINAL: No nausea, vomiting, change in stools or blood per rectum. GENITOURINARY: Has mild dysuria. No recent off color urine. ENDOCRINE: Denies polyuria, polydipsia, heat or cold intolerance. NEUROLOGIC: Denies motor or sensory deficit. She has had improvement of her gait with PT. Denies history of stroke, but has some mild dementia. HISTORY AND PHYSICAL [id number] GARCIA MÁRQUEZ INTEGUMENT: No rash or itching. PSYCHIATRIC: Denies depressed mood. PHYSICAL EXAMINATION: VITAL SIGNS: Temperature is 98.5, pulse 89 and irregular, respirations were 20, blood pressure ____ with a sat 95% on room air. HEENT: Normocephalic. Eyes are clear. NECK: No bruits or masses. CHEST: Clear. HEART: Irregular rate without gallop or murmur. ABDOMEN: Soft, no organomegaly. RECTAL: Deferred. EXTREMITIES: Trace bipedal edema. NEUROLOGICAL: Oriented to person, but not in place, but not time. No motor or sensory deficits. She walks unassisted. She has slight decreased sensation to touch in the bottoms of both feet. LABORATORY DATA: Initial blood sugars in excess of 500, white count was 8300 with H&H 13.8 and 40.4 respectively, potassium 4.0, serum CO2 is 26.5. Liver functions were normal. Urine was cloudy, pH of 5, trace protein, 25-50 white cells, greater than 1+ yeast, few bacteria. Serum ketones were negative. ASSESSMENT: Urinary tract infection, possible Nissa sepsis, uncontrolled diabetes mellitus type 2, history of atrial fibrillation/flutter, essential hypertension, medication noncompliance, mild dementia. PLAN: Admit for cultures, IV antibiotics, IV Diflucan based on prior urine culture revealing Nissa. Sliding scale insulin. We will need fdc placement. TRANSINT:[id number] Voice Confirmation ID: [id number] DOCUMENT ID: [id number] ALLEY STONE MD at 0539 CC: [id number] DICTATION DATE: 12/09/161756 WAREHOUSE ASSOCIATE DRIVER: 12/09/16 192 ADM IN [address] [id number] [place] [address]
[2016-12-10 06:09] LABS: BASOPHILS 0.4 % (0.0-2.0); EOSINOPHILS 2.1 % (0-7); HEMATOCRIT 36.9 % (36.0-48.0); HEMOGLOBIN 12.4 g/dL (12-16); IMMATURE GRANULOCYTES 0.3 % (0-5); LYMPHOCYTES 28.7 % (15-50); MCH 30.4 pg (26.0-34.0); MCHC 33.6 g/dL (31.0-37.0); MCV 90.4 fL (80.0-100.0); MEAN PLATELET VOLUME 10.4 fL (7.4-10.4); MONOCYTES 9.5 % (2-11); PLATELET COUNT 215 10x3/uL (130-400); RBC 4.08 10x6/uL (4.00-5.40); RDW 14.1 % (11.5-14.5); WBC 7.3 10x3/uL (4.8-10.8)
[2016-12-10 06:27] LABS: CALCIUM 8.1 mg/dL (8.5-10.1); CARBON DIOXIDE 24.8 mmol/L (21.0-32.0); CHLORIDE - SERUM 108 mmol/L (98-107); POTASSIUM - SERUM 3.5 mmol/L (3.5-5.1); SODIUM 143 mmol/L (136-145); UREA NITROGEN 12 mg/dL (7-18); eGFR NON AFRICAN AMERICAN 86 mL/min (90-120)
[2016-12-10 06:28] LABS: CALC OSMOLALITY 291 mosm/kg (275-300); CREATININE - SERUM 0.7 mg/dL (0.6-1.3); GLUCOSE 217 mg/dL (74-106)
[2016-12-10 07:44] VITALS: BP 132/83
--- NOTE | 2016-12-10 09:10 | NUR ---
ASSESSMENT PER FLOW SHEET.PT WITHOUT DISTRESS.PT DENIES NEEDS AT PRESENT.IV SL SO PT CAN SHOWER.MONITOR FOR NEEDS.
--- NOTE | 2016-12-10 11:30 | NUR ---
UP IN CHAIR.SHE IS WAITING ON LUNCH TRAY.FSBS 231,INSULIN ORDERED PER DEC.
[2016-12-10 12:05] VITALS: BP 129/72
[2016-12-10 13:07] VITALS: Ht 167.6 cm; Wt 90.7 kg
[2016-12-10 15:09] VITALS: BP 149/70
--- NOTE | 2016-12-10 15:11 | NUR ---
Patient Name: GARCIA MÁRQUEZ Admission Status: ER Accout number: [id number] Admission Date: 12-09-2016 : 1940 Admission Diagnosis: Attending: FAUSTO Current LOS: 1 Anticipated DC Date: 12-12-2016 Planned Disposition: Home with Home Health Primary Insurance: MEDICARE A & B Discharge Planning Comments: CM MET WITH PATIENT REGARDING D/C NEEDS AND PLANS. PATIENT STATED SHE LIVES ALONE AND SHE WILL DRIVE HERSELF HOME AT DISCHARGE. PATIENT STATED SHE HAS ONE STEP TO ENTER HOME AND NO STAIRS INSIDE. PATIENT STATED SHE IS INDEPENDENT AT HOME AND HAS A WALKER, WHEELCHAIR, GLUCOMETER 3XDAY (CHECKS BS), AND BATHROOM IS HANDICAPPED EQUIPPED. [facility]. PATIENTS PCP IS DR. STONE AND PHARMACY IS [facility] ON [address]. CM WILL CONTINUE TO FOLLOW PATIENT WITH D/C NEEDS AND PLANS. [facility] [phone] JOEY (DAUGHTER) [phone] Tier Truck Driver: Apurva Mariscal Is the patient Alert and Oriented? Yes 0 * How many steps to enter\exit or inside your home? 1 0 * PCP DR. STONE 0 * [facility] [address] [address] 0 * Preadmission Environment Home Alone 0 * ADLs Independent 0 * Equipment Glucometer Walker Wheelchair 0 * Other Equipment HANDICAPP BATHROOM 0 * List name and contact numbers for known caregivers / representatives who currently or will assist patient after discharge: JOEY ROMERO (DAUGHTER) [phone] 0 * Community resources currently utilized Home Health 0 * Please name any agencies selected above. [facility] 0 * Additional services required to return to the preadmission environment? Yes 0 * Can the patient safely return to the preadmission environment? Yes 0 * Has this patient been hospitalized within the prior 30 days at any hospital? No 0 Grand Total: 0
--- NOTE | 2016-12-10 15:57 | NUR ---
REMAINS WITHOUT NEEDS.CALL LIGHT IN REACH
[2016-12-10 20:00] VITALS: BP 156/75
--- NOTE | 2016-12-10 20:00 | NUR ---
ASSESSMENT PER FLOWSHEET. IV PATENT LEFT HAND CHANGED TO SALINE LOCK AFTER ANTIOBIC COMPLETED. SITTING UPRIGHT IN CHAIR AT BEDSIDE. PT REQUESTED SLEEPING MED AT HS. NO MED ORDERED. CONTACTED DR. SUMMERS SATURATOR ORDERS REC'D.
--- NOTE | 2016-12-10 21:00 | NUR ---
MEDS GIVEN PER DEC. RKBI=846. HUMALOG INSULIN 8 UNITS GIVEN SUBC PER S/S. DIABETIC SNACK OF HARPAL CRACKERS AND MILK GIVEN PO.
--- NOTE | 2016-12-10 21:10 | NUR ---
AMBIEN 5 MG PO GIVEN FOR SLEEP.
--- NOTE | 2016-12-10 22:57 | NUR ---
EYES CLOSED RESPIRATIONS WITH EASE AND UNLABORED. SR UP X2 CALL LIGHT WITHIN REACH.
--- NOTE | 2016-12-11 00:04 | NUR ---
EYES CLOSED RESPIRATIONS WITH EASE AND UNLABORED.
--- NOTE | 2016-12-11 03:00 | NUR ---
EYES CLOSED RESPIRATIONS WITH EASE AND UNLABORED.
--- NOTE | 2016-12-11 03:00 | NUR ---
PT REMAINS LETHARGIC. RESPIRATIONS LABORED. EXTREMITIES MODELED. FEET CYANOTIC AND COOL TO TOUCH. COMPLETE BED BATH WITH LINENS CHANGED. SUCTIONED ORALLY WITH YAUNKER TUBE.
[2016-12-11 04:00] VITALS: BP 111/51
--- NOTE | 2016-12-11 04:31 | NUR ---
EYES CLOSED RESPIRATIONS LABORED. EXTREMITIES REMAIN COOL TO TOUCH AND CYANOSIS.
--- NOTE | 2016-12-11 04:35 | NUR ---
RESTING QUIETLY DENIES NEEDS.
--- NOTE | 2016-12-11 06:23 | NUR ---
RPUR=543. NO COVERAGE NEEDED. MEDS PER DEC.
--- NOTE | 2016-12-11 07:30 | NUR ---
AWAKE ALERT SITTING UP IN BED DENIES ANY NEEDS AT THIS TIME AT PRESENT.SL PATENT IN LEFT WRIST.
[2016-12-11 07:57] VITALS: BP 131/77
--- NOTE | 2016-12-11 09:05 | NUR ---
MEDS GIVEN KAREN WELL DENIES ANY NEEDS AT THIS TIME.
--- NOTE | 2016-12-11 11:00 | NUR ---
SHERLEY IN [facility] N/C VOICED.
[2016-12-11 12:35] VITALS: BP 131/68
--- NOTE | 2016-12-11 13:00 | NUR ---
SITTING UP IN CHAIR AT PRESENT N/C VOICED AT PRESENT.
--- NOTE | 2016-12-11 15:00 | NUR ---
AMB IN HALLWAY DENIES ANY NEEDS AT PRESENT.
[2016-12-11 15:31] VITALS: BP 118/56
--- NOTE | 2016-12-11 15:45 | NUR ---
CM DISCHARGE REASSESSMENT NOTE: PATIENT DOES NOT WANT TO GO TO LONG TERM AND REHAB AND SHE STATED SHE HAS INSURANCE FOR HALF-WAY PLACEMENT WHEN NEEDED. PATIENT STATED SHE WANTS TO GO HOME AT DISCHARGE-CURRENT WITH [facility].
--- NOTE | 2016-12-11 17:41 | NUR ---
REMAINS SITTING UP IN CHAIR AT PRESENT.
--- NOTE | 2016-12-11 20:00 | NUR ---
ASSESSMENT PER FLOWSHEET. IV PATENT LEFT HAND SALINE LOCK. UP AD SABRA IN ROOM. DENIES NEEDS. STATES MD TALKING ABOUT JAIL PLANS IN ORDER TO HELP GET HER BLOOD SUGARS REGULATED.
--- NOTE | 2016-12-11 21:15 | NUR ---
MEDS GIVEN PER DEC. XVFK=600. HUMALOG INSULIN 10 UNITS GIVEN SUBC PER S/S. HARPAL CRACKERS GIVEN PO FOR ADA SNACK. REFUSED MILK LACTOSE INTOLERANCE.
[2016-12-11 21:25] VITALS: BP 128/58
--- NOTE | 2016-12-12 01:05 | NUR ---
PT STATES FEELING SWEATY. BLOOD SUGAR TAKEN CTBEOFF=073. NO COVERAGE GIVEN 2 HARPAL CRACKERS GIVEN TO PATIENT. 100% CONSUMED.
[2016-12-12 01:14] VITALS: BP 118/60
--- NOTE | 2016-12-12 06:46 | NUR ---
AWAKE MEDS PER MAR. MALP=474. NO COVERAGE NEEDED.
[2016-12-12 06:50] VITALS: BP 128/58
--- NOTE | 2016-12-12 08:03 | NUR ---
AWAKE ALERT COLORADQ SKIN WARM AND DRY AT PRESENT RESP EVEN AND UNLABORED AT PRESENT.
[2016-12-12 08:20] VITALS: BP 138/65
--- NOTE | 2016-12-12 09:00 | NUR ---
MEDS GIVEN KAREN WELL AT PRESENT.
--- NOTE | 2016-12-12 11:00 | NUR ---
AMB IN [address] AT PRESENT N/C VOICED.
[2016-12-12 12:19] VITALS: BP 126/68
--- NOTE | 2016-12-12 13:15 | NUR ---
UP AMB IN HALLWAY AT PRESENT KAREN WELL AT PRESENT.
--- NOTE | 2016-12-12 13:22 | NUR ---
CM REASSESSMENT NOTE: PATIENT HAS DECIDED TO GO TO [facility] PER DR. STONE. REFERRAL HAS BEEN SENT AND [facility] WILL CALL AND LET CM KNOW IF PATIENT CAN COME TODAY OR TOMORROW. CM WILL CONTINUE TO FOLLOW PATIENT WITH D/C NEEDS AND PLANS.
--- NOTE | 2016-12-12 13:34 | NUR ---
CM NOTE: PATIENT SIGNED THE MARY FORM FOR [facility].
--- NOTE | 2016-12-12 14:58 | NUR ---
CM REASSESSMENT NOTE: PATIENT IS DISCHARGING TO [facility] TO A SKILLED BED. PATIENTS DAUGHTER WILL BE DRIVING HER THERE.
[2016-12-12] MEDS ORDERED: DIFLUCAN100 MG PO (15:01)
[2016-12-12] MEDS ORDERED: ACETAMINOPHEN500 M1 PO (15:07)
--- NOTE | 2016-12-12 15:17 | NUR ---
SITTING QUIETLY IN CHAIR AT PRESENT N/C.
[2016-12-12] MEDS ORDERED: EFFIENT10 MG PO (15:32)
--- NOTE | 2016-12-12 16:15 | NUR ---
REPORT CALLED TO KITTY HART.PT LEFT VIA W/C WOTH DAUGHTER TO NH.
--- NOTE | 2017-01-18 20:25 | DS ---
PATIENT:GARCIA MÁRQUEZ :38 MEDICAL RECORD: [id number] DISCHARGE SUMMARY ADMISSION DATE: 12/09/16 DISCHARGE DATE: 12/12/16 DISCHARGE DIAGNOSES: Uncontrolled type 2 diabetes mellitus, noncompliance with medication, dementia, urinary tract infection, atrial fibrillation and flutter, hypertension and candiduria. HOSPITAL COURSE: A 76-year-old female with diabetes mellitus, admitted to the hospital a month prior to this admission. She had been noncompliant with medication, but her daughter and home health had been helping her with her insulin. She gradually improved, did have a Nissa UTI on an outpatient basis. She went to the [facility] and was there for 10 days and improved her physical status, was back home over the last week. [facility] called me this morning, the blood sugars over 500, not taking medication as prescribed. She presented to the Emergency Room with blood sugar in excess of 500 with a current UTI, confused, was admitted for possible urosepsis and control of her diabetes. On admission, her temperature was 98.5, pulse was irregular, 89 per minute and sat was 95% on room air. Neurologically, she was confused to person, place and time. Initial blood sugar was in excess of 500 with a white count of 8300. Potassium of 4. CO2 is 26.5. Liver functions were normal. Urine was cloudy with pH of 5, 25-50 white cells and few bacteria, 1+ yeast. She was cultured and placed on IV antibiotics, placed on sliding scale insulin and diabetic education was again employed. We had several discussion with the patient and her daughter and recommended long-term residential placement due to her noncompliance and high risk of recurrent illness. The patient gradually improved. Blood sugars dropped in the range of 207 to 221. Urine culture was negative for growth. After arrangements were made for discharge to [facility], she was discharged on 12/12/2016. DISCHARGE MEDICATIONS: Diflucan 100 mg p.o. daily for 7 days, discontinue, Tylenol 500 mg q.4 hours for fever, Effient 10 mg p.o. daily, Lasix 20 mg p.o. daily, Dexilant 60 mg p.o. daily, vitamin B12 of 1 cc IM every 14 days, Cozaar 100 mg at h.s., lisinopril, Humalog sliding scale a.c. and h.s. low sensitivity, Lopressor 50 mg p.o. b.i.d., Imodium 2 mg t.i.d. p.r.n. diarrhea, Klonopin 0.5 mg p.o. daily p.r.n. anxiety, Ultram 50 mg 1-2 q.6 hours for pain, Klor-Con 10 mEq capsule p.o. t.i.d., Levemir 25 units subQ b.i.d. a.c., Linzess ____ capsule p.o. at h.s. DIET: Diabetic. ACTIVITY: Progressive physical therapy as tolerated. TRANSINT:[id number] Voice Confirmation ID: [id number] DOCUMENT ID: [id number] DISCHARGE SUMMARY REPORT [id number] GARCIA MÁRQUEZ TIMOTHY MD at 2025 CC: [id number] DICTATION DATE: 01/12/17 1411 VICE PRESIDENT PLANNING: 01/13/17 0644 DIS IN 12/12/16 [id number] [place] [address]
== END 2016-12-12 16:46 | DRG 638 ==
LOC: D.ER 11:30 → D.MS 16:45
PROVIDERS: Emergency Medicine; ADMIT Family Medicine
DX: E11.65 Type 2 diabetes mellitus with hyperglycemia (principal); I48.92 Unspecified atrial flutter; B37.49 Other urogenital candidiasis; Z91.14 Patient's other noncompliance with medication regimen; F03.90 Unspecified dementia, unspecified severity, without behavioral disturbance, psychotic disturbance, mood disturbance, and anxiety; I48.2 Chronic atrial fibrillation; I10 Essential (primary) hypertension

== ENCOUNTER 2017-02-23 11:22 | Observation (INO) | payer MEDICARE, OTHER ==
[~2017-02-23] VITALS: Ht 167.6 cm; Wt 89.6 kg
--- NOTE | ~2017-02-23 | CN ---
PATIENT NAME:GARCIA MÁRQUEZ MEDICAL RECORD: [id number] : 36 LOCATION:D. D.2103 ADMIT DATE: 02/23/17 ACCOUNT: [id number] CONSULTING PHYSICIAN: TIA DEGROOT MD REFERRING PHYSICIAN: ALLEY STONE MD DATE OF CONSULTATION: 02/23/2017 DIAGNOSES: 1. Chronic stable angina. 2. Coronary artery disease. 3. Previous percutaneous transluminal coronary angioplasty stent. 4. Hyperglycemia. 5. Atrial fibrillation, chronic. 6. Sick sinus syndrome. 7. Status post pacemaker. 8. Hypertension. HISTORY OF PRESENT ILLNESS: Mrs. Márquez presents with hyperglycemia. She was told to come to the Emergency Room due to hyperglycemia. She was somewhat nervous. She did have some chest pain upon arrival. She has no ST-T changes on her EKG. Her chest pain is resolved by itself. She said this is not uncommon for her to get episodes of chest discomfort with emotional distress. Her last PTCA stent was November of last year. She remains on Effient. She is in atrial fibrillation. This is not new. She has a pacemaker, last interrogation was stable. PHYSICAL EXAMINATION: GENERAL APPEARANCE: Well-nourished, well-developed, appears stated age. Level of distress, comfortable. PSYCHIATRIC: Mental status, alert, normal affect. Orientation, oriented to time, place and person. EYES: Lids and conjunctiva, noninjected. No discharge, no pallor. ENT: Lips, teeth, gums, normal dentition. Oropharynx, no cyanosis, no pallor. NECK: Carotid arteries, bilateral normal upstroke, no bruits, no thrills. JUGULAR VEINS: No jugular venous pressure or distention. CERVICAL LYMPH NODES: Nontender, nonenlarged. THYROID: Not enlarged. Nontender. No nodules. LUNGS: Respiratory effort, unlabored. CHEST: Normal curvature. No thoracic deformity. No chest wall tenderness. Percussion, resonant. Auscultation, clear. No wheezes, no rales, no rhonchi. CARDIOVASCULAR: Precordial exam, nondisplaced. No heaves or pericardial thrills. Rate and rhythm, regular. Heart sounds, normal S1, normal S2. No S3, no gallop, no rub. Systolic murmur, not heard. Diastolic murmur, not heard. EXTREMITIES: No cyanosis, no edema. Peripheral pulses, full and equal in all extremities, except as noted. No bruits appreciated. ABDOMEN: Soft, nondistended. Normal aorta. No bruit. Nontender. No masses. Liver, nontender, no hepatomegaly. Spleen, nontender, no splenomegaly. MUSCULOSKELETAL: No joint tenderness. No joint swelling. No erythema. NEUROLOGICAL: Normal gait, normal strength, normal tone. SKIN: Warm and dry. REVIEW OF SYSTEMS: The patient reports easy bruising but reports no swollen glands. The patient reports no fever, no night sweats, no significant weight gain, no significant weight loss. No significant exercise tolerance. The patient reports no dry eyes, no irritation, no vision change. Patient reports CONSULT REPORT [id number] GARCIA MÁRQUEZ no difficulty hearing and no ear pain. Patient reports no frequent nose bleeds or nose and sinus problems. Patient reports on arm pain on exertion. No shortness of breath while lying down. No history of heart murmur. Patient reports no cough, no wheezing or coughing up blood. Patient reports no abdominal pain, no vomiting. Normal appetite. No diarrhea and not vomiting blood. No nausea and no constipation. Patient reports no incontinence. No difficulty urinating. No hematuria. No increased frequency. Patient reports no muscle aches. No weakness, no arthralgias, no back pain. No swelling of the extremities. Patient reports no abnormal mole, no jaundice, no rashes. Reports no loss of consciousness. No weakness and no numbness. No seizures, dizziness, or headaches. The patient reports no depression, no sleep disturbance, feeling safe in a relationship and no alcohol abuse. Patient reports on fatigue. Reports no runny nose or sinus pressure. No itching, no hives, and no frequent sneezing. OVERALL IMPRESSION: Troponin is negative. EKG is with no changes. The chest pain is not out of character for her chronic stable angina. At this time, no other cardiac workup or treatment is necessary. TRANSINT:[id number] Voice Confirmation ID: [id number] DOCUMENT ID: [id number] TIA DEGROOT MD CC: [id number] DICTATION DATE: 02/23/17 1549 SYSTEMS ANALYST DEVELOPER: 02/23/17 1606 ADM IN [facility] [address] [place] [address]
--- NOTE | ~2017-02-23 | DS ---
PATIENT:GARCIA MÁRQUEZ :36 MEDICAL RECORD: [id number] DISCHARGE SUMMARY ADMISSION DATE: 02/23/17 DISCHARGE DATE: 02/25/17 DISCHARGE DIAGNOSES: 1. Uncontrolled diabetes mellitus 2. Chest pain. 3. Atherosclerotic heart disease. 4. Atrial fibrillation. 5. Urinary tract infection. HOSPITAL COURSE: A 76-year-old female, who had recently discharge herself from the detention to home care and had questionable compliance with her insulin. She became ill and presented to the Emergency Room and had chest pain upon arrival, lasted for 1 hour. Also, notes she had urine to be grossly infected and blood sugar was over 540. She was admitted. Cardiac enzymes were obtained which showed no acute injury. EKG showed no acute changes. Dr. Sanford from Cardiology saw the patient. I think intervention was indicated. The patient's chest pain did not recur. Her blood sugars were managed with sliding scale insulin, appropriate diet and corrected to below 120 this morning. She has had no further chest pain. Her urine was grossly infected. She was placed on IV Levaquin, but had a skin reaction. This was stopped. She was placed on Macrobid b.i.d. Her culture is currently pending. She will discharged home today with home health care to assess her ability to care for herself and use her insulin. I talked with her daughter who attempts to help some, but she works line service person. DISCHARGE MEDICATIONS: Nitrofurantoin 100 mg b.i.d. for 5 days and discontinue, Levemir 35 units subQ b.i.d. a.c., Lasix 20 mg p.o. q.a.m., Dexilant 60 mg p.o daily, vitamin B12 of 1 cc IM q.14 days, Cozaar 100 mg p.o. at h.s., NovoLog sliding scale a.c. and h.s. per low sensitivity scale, Lopressor 50 mg p.o. b.i.d., Effient 10 mg p.o. daily, Klor-Con 10 mEq capsule p.o. t.i.d., Linzess 145 mcg capsule p.o. q. day. ACTIVITY: As tolerated. FOLLOWUP: Return to clinic to see me in 7 days with UA and BMP. TRANSINT:[id number] Voice Confirmation ID: [id number] DOCUMENT ID: [id number] ALLEY STONE MD CC: [id number] DICTATION DATE: 02/25/17 0756 SAILOR: 02/26/17 0051 DIS IN 02/25/17 [place] [id number] [place] [id number]
[~2017-02-23 11:22] MED LIST changes: +ACETAMINOPHEN500 M1 PO; +DIFLUCAN100 MG PO; +LINZESS145 MCG PO
[2017-02-23 14:06] LABS: BASOPHILS 0.2 % (0-2); HEMATOCRIT 47.6 % (36.0-48.0); IMMATURE GRANULOCYTES 0.3 % (0-5); LYMPHOCYTES 29.1 % (15-50); MCH 30.4 pg (26.0-34.0); MCHC 33.6 g/dL (31.0-37.0); MCV 90.5 fL (80.0-100.0); MEAN PLATELET VOLUME 10.3 fL (7.4-10.4); MONOCYTES 9.7 % (2-11); NEUTROPHILS 59.7 % (40-80); PLATELET COUNT 215 10x3/uL (130-400); RBC 5.26 10x6/uL (4.00-5.40); RDW 13.2 % (11.5-14.5); WBC 9.7 10x3/uL (4.8-10.8)
[2017-02-23 14:17] LABS: ALBUMIN 3.4 g/dL (3.4-5.0); ANION GAP 16.5 mmol/L (8-16); BILIRUBIN - TOTAL 0.31 mg/dL (0.2-1.3); CARBON DIOXIDE 22.9 mmol/L (21.0-32.0); CREATININE - SERUM 1.1 mg/dL (0.6-1.3); POTASSIUM - SERUM 4.4 mmol/L (3.5-5.1); PROTEIN - SERUM 6.8 g/dL (6.4-8.2)
[2017-02-23 14:21] LABS: MAGNESIUM - SERUM 1.9 mg/dL (1.8-2.4); TROPONIN-I 0.017 ng/mL (0.000-0.060)
--- NOTE | 2017-02-23 18:25 | NUR ---
1819-RECEIVED VIA WHEELCHAIR TO ROOM. SALINE LOCK SEEN TO TO LEFT HAND. LEFT PACEMAKER FELT. WILL ADMIT.
[2017-02-23 18:53] LABS: APPEARANCE HAZY (CLEAR); BILIRUBIN NEGATIVE (NEGATIVE); COLOR YELLOW (YELLOW); GLUCOSE 1000 mg/dL (NEGATIVE); KETONE NEGATIVE (NEGATIVE); LEUKOCYTE ESTERASE 2+ (NEGATIVE); NITRITE NEGATIVE (NEGATIVE); PROTEIN TRACE mg/dL (NEGATIVE); UROBILINOGEN NORMAL (NORMAL)
[2017-02-23 18:55] LABS: BACTERIA MODERATE /hpf (NONE SEEN); EPITHELIAL CELLS 0-5 /hpf (0-5); RED CELLS - URINE 0-5 /hpf (0-5); WHITE CELLS - URINE >50 /hpf (0-5); YEAST >1+ /hpf (NONE SEEN)
--- NOTE | 2017-02-23 19:27 | NUR ---
RECEIVED REPORT, PT IS A&O, IV-L. HAND-SL, PT IS ON FALL PER CAUTION, BED IS LOW, SRX2, CALL LIGHT IN REACH, WILL CONTINUE TO MONITOR
[2017-02-23 19:45] VITALS: BP 123/59
[2017-02-23 21:35] VITALS: BP 168/63; BMI 30.7
--- NOTE | 2017-02-23 23:07 | NUR ---
GUITAR REPAIR TECHNICIAN AT BEDSIDE FOR VS. NEEDS ADDRESSED AT THIS TIME. CALL LIGHT IN REACH. WILL CONT TO MONITOR.
--- NOTE | 2017-02-23 23:45 | NUR ---
EXPLAINED TO PT SHE WAS NPO AFTER MIDNIGHT UNTIL SEEN BY CARTOLOGY
[2017-02-24 00:29] VITALS: BP 102/52
--- NOTE | 2017-02-24 04:10 | NUR ---
ASSESSMENT COMPLETE, SEE FLOW SHEET, BED IS LOW, SRX2, CALL LIGHT IN REACH, WILL CONTINUE TO MONITOR
--- NOTE | 2017-02-24 06:22 | NUR ---
[id number]
--- NOTE | 2017-02-24 07:22 | NUR ---
0708-AM ROUNDING DONE WITH PATIENT SEEN COMING BACK FROM RESTROOM. ENCOURAGED TO USE CALL LIGHT FOR ALL NEEDS. NPO STATUS UNTIL SEEN PER DR DEGROOT. LEFT PACEMAKER SITE SEEN. ON ROOM AIR. SALINE LOCK TO LEFT HAND. WILL MONITOR.
--- NOTE | 2017-02-24 07:34 | NUR ---
PER REGAN IN [facility], THERE ARE NO ORDERS AT THIS TIME FOR HEART CATH. INFORMED PATIENT AND DR STONE OF THIS.
--- NOTE | 2017-02-24 08:59 | NUR ---
CALLED TO ROOM WITH PATIENT STATING THAT HER HAND IS ITCHING (LEVAQUIN INFUSING). MEDICATION STOPPED AND DR STONE CALLED. PATIENT REPORTS THAT HER LAST ADMIT THERE WAS AN ANTIBIOTIC THAT MADE EHR ITCH AND SHE COULD NOT RECALL THE NAME. NEW ORDERS RECEIVED.
[2017-02-24 09:12] VITALS: BP 97/58
--- NOTE | 2017-02-24 10:42 | NUR ---
PATIENT STATES TO HAVING A BOWEL MOVEMENT.
[2017-02-24 12:11] VITALS: BP 148/78
[2017-02-24 13:19] VITALS: Ht 167.6 cm; Wt 89.6 kg
[2017-02-24 15:18] VITALS: BP 130/70
--- NOTE | 2017-02-24 15:56 | NUR ---
RATIONALE FOR SCD'S EXPLAINED. REFUSED SCD'S
--- NOTE | 2017-02-24 17:33 | NUR ---
DENIES NEEDS AT PRESENT TIME, EATING SUPPER WITH NO COMPLAINTS. WILL CONTINUE TO MONITOR.
[2017-02-24 19:56] VITALS: BP 157/64
--- NOTE | 2017-02-24 22:38 | NUR ---
NURSING ROUNDS 21:00 - PT AWAKE, ALERT, ORIENTED, DENIES ANY NEEDS. PT STATES SHE DOES NOT SNACK OR EAT A LOT OF SUGAR PRODUCTS AND DOES NOT UNDERSTAND WHY HER FSBS IS SO HIGH. WE DISCUSSED HER NEED FOR ASSISTANCE AT HOME TO HELP WITH HER GLUCOSE, AND SHE STATES THAT SOMETIMES SHE FORGETS TO TAKE HER NIGHT TIME INSULIN. PT IS IN NO ACUTE DISTRESS. I DID TEACHING ON THE IMPORTANCE OF CHECKING HER FSBS BEFORE BEDTIME TO ALLOW COVERAGE DURING THE OVER NIGHT HOURS, BUT ALSO EMPHASIZED THE NEED TO ALSO HAVE A HEALTHY SNACK WHILE TREATING HER GLUCOSE AT BEDTIME. I HAVE SUGGESTED GLUCERNA SHAKES OR FRESH FRUIT. PT VERBALLY AGREED TO DO SO. CONTINUE TO MONITOR CLOSELY. BED LOW, CALL LIGHT IN REACH, SIDE RAILS X 2, HOB 25 DEGREES.
[2017-02-24 23:42] VITALS: BP 126/49
[2017-02-25 03:42] VITALS: BP 130/68
--- NOTE | 2017-02-25 04:34 | NUR ---
PT AWAKE, ALERT, ORIENTED, AMBULATING TO BATHROOM. PT DENIES ANY NEEDS. CONTINUE TO MONITOR CLOSELY.
[2017-02-25 05:25] LABS: BASOPHILS 0.3 % (0-2); EOSINOPHILS 1.9 % (0-7); HEMATOCRIT 42.5 % (36.0-48.0); HEMOGLOBIN 14.1 g/dL (12-16); IMMATURE GRANULOCYTES 0.3 % (0-5); LYMPHOCYTES 37.8 % (15-50); MCH 29.9 pg (26.0-34.0); MCHC 33.2 g/dL (31.0-37.0); MCV 90.2 fL (80.0-100.0); MEAN PLATELET VOLUME 10.2 fL (7.4-10.4); MONOCYTES 9.4 % (2-11); NEUTROPHILS 50.3 % (40-80); PLATELET COUNT 232 10x3/uL (130-400); RBC 4.71 10x6/uL (4.00-5.40); RDW 13.1 % (11.5-14.5)
[2017-02-25 05:40] LABS: WBC 6.8 10x3/uL (4.8-10.8)
[2017-02-25 05:43] LABS: CALCIUM 8.7 mg/dL (8.5-10.1)
[2017-02-25 05:45] LABS: HEMOGLOBIN A1C 11.2 % (4.8-6.0)
[2017-02-25 05:48] LABS: ANION GAP 9.8 mmol/L (8-16); CARBON DIOXIDE 28.9 mmol/L (21.0-32.0); CREATININE - SERUM 0.8 mg/dL (0.6-1.3); POTASSIUM - SERUM 3.7 mmol/L (3.5-5.1)
--- NOTE | 2017-02-25 07:23 | NUR ---
0705-SITTING UP IN BED WATCHING TV. ON ROOM AIR. LEFT HAND SEEN WTIH SALINE LOCK. ON HEART MONITOR SHOWING PACED, HR 59. PACEMAKER IS ON LEFT CHEST WALL. PATIENT IS UP AD SABRA, ASKED THAT SHE USE CALL LIGHT FOR ANY NEEDS. WILL MONITOR.
[2017-02-25 07:30] VITALS: BP 130/62
[2017-02-25] MEDS ORDERED: LEVEMIR100 U/M1 SC (07:52)
--- NOTE | 2017-02-25 09:55 | NUR ---
Patient Name: GARCIA MÁRQUEZ Admission Status: ER Accout number: [id number] Admission Date: 02-23-2017 : 1940 Admission Diagnosis: Attending: FAUSTO Current LOS: 2 Anticipated DC Date: 02-25-2017 Planned Disposition: Home with Home Health Primary Insurance: MEDICARE A & B PLANNED EXTERNAL PROVIDER: [facility] Discharge Planning Comments: * Is the patient Alert and Oriented? Yes 0 * How many steps to enter\exit or inside your home? 1 0 * PCP DR. STONE 0 * Pharmacy [facility] [address] OR [facility] MAIL ORDER 0 * Preadmission Environment Home Alone 0 * ADLs Independent 0 * Equipment Glucometer 0 * Other Equipment NO MEDICAL EQUIPMENT PROVIDER PREFERENCE 0 * List name and contact numbers for known caregivers / representatives who currently or will assist patient after discharge: ALDO ROMERO, DAUGHTER, 0 * Community resources currently utilized None 0 * Please name any agencies selected above. NONE 0 * Additional services required to return to the preadmission environment? No 0 * Can the patient safely return to the preadmission environment? Yes 0 * Has this patient been hospitalized within the prior 30 days at any hospital? No 0 CM RECEIVED HOME HEALTH ORDER, MET WITH PT IN ROOM TO DISCUSS DISCHARGE PLANNING AND NEEDS. PT REPORTS LIVING AT HOME INDEPENDENTLY AND ALONE. PT HAS A GLUCOMETER WITH NO MEDICAL EQUIPMENT PROVIDER PREFERENCE AND NO OUTSIDE SERVICES ASSISTING IN THE HOME. CM DISCUSSED AVAILABILITY OF HOME HEALTH, REHAB SERVICES AND MEDICAL EQUIPMENT. PT WOULD LIKE [facility] SHE HAS USED THEM PREVIOUSLY, REPORTS HER SON IN LAW WILL PICK HER UP FOR DISCHARGE HOME. CHOICE LETTER SIGNED. CM CALLED [facility], , SPOKE TO MEKA AND PROVIDED REFERRAL INFORMATION FOR HOME HEALTH ADMISSION TOMORROW. CM FAXED REFERRAL TO [facility] AT [phone]. PT NOTIFIED, NO FURTHER DISCHARGE NEEDS IDENTIFIED. Engineer And Geologist: Andre Ibrahim
[2017-02-25] MEDS ORDERED: MACROBID100 MG PO (10:17)
--- NOTE | 2017-02-25 12:04 | NUR ---
VERBAL AND WRITTEN DISCHARGE INSTRUCTIONS GIVEN TO PATIENT. PATIENT IS TO NOTIFY US WHEN HER RIDE IS DOWNSTAIRS SO WE MAKE DISCHARGE HER VIA WHEELCHAIR.
--- NOTE | 2017-02-25 12:21 | NUR ---
DISHCARGED HOME VIA WHEELCHAIR.
== END 2017-02-25 12:23 | disposition home or self-care (01) ==
LOC: D.ER 11:22 → D.M2 17:17 → OBSVTIME 17:18 → D.M2 02-25 12:23
PROVIDERS: Emergency Medicine; Physician Assistant; ADMIT Family Medicine
DX: E13.10 Other specified diabetes mellitus with ketoacidosis without coma (principal); E11.40 Type 2 diabetes mellitus with diabetic neuropathy, unspecified; I25.119 Atherosclerotic heart disease of native coronary artery with unspecified angina pectoris; Z95.5 Presence of coronary angioplasty implant and graft; I48.2 Chronic atrial fibrillation; Z95.0 Presence of cardiac pacemaker; I10 Essential (primary) hypertension; N39.0 Urinary tract infection, site not specified

== ENCOUNTER 2017-05-27 19:03 | Emergency (ER) | payer MEDICARE, OTHER ==
[2017-02-24 13:19] VITALS: BMI 30.6
[~2017-05-27 19:03] MED LIST changes: +MACROBID100 MG PO
== END 2017-05-27 23:25 | disposition home or self-care (01) ==
LOC: D.ER 19:03
DX: E11.65 Type 2 diabetes mellitus with hyperglycemia (principal); Z79.4 Long term (current) use of insulin; Z91.19 Patient's noncompliance with other medical treatment and regimen; Z95.0 Presence of cardiac pacemaker; R35.8 Other polyuria

== ENCOUNTER 2017-06-03 18:40 | Inpatient (IN) | payer MEDICARE, OTHER ==
[~2017-06-03] VITALS: Ht 167.6 cm; Wt 90.9 kg
[2017-06-03 20:01] LABS: APPEARANCE CLEAR (CLEAR); BILIRUBIN NEGATIVE (NEGATIVE); COLOR YELLOW (YELLOW); GLUCOSE 1000 mg/dL (NEGATIVE); KETONE SMALL mg/dL (NEGATIVE); LEUKOCYTE ESTERASE 1+ (NEGATIVE); NITRITE NEGATIVE (NEGATIVE); PROTEIN NEGATIVE (NEGATIVE); UROBILINOGEN NORMAL (NORMAL)
[2017-06-03 20:04] LABS: BACTERIA FEW /hpf (NONE SEEN); EPITHELIAL CELLS 0-5 /hpf (0-5); WHITE CELLS - URINE 25-50 /hpf (0-5)
[2017-06-03 20:07] LABS: BASOPHILS 0.2 % (0-2); EOSINOPHILS 1.1 % (0-7); HEMATOCRIT 45.3 % (36.0-48.0); HEMOGLOBIN 15.6 g/dL (12-16); IMMATURE GRANULOCYTES 0.7 % (0-5); LYMPHOCYTES 29.1 % (15-50); MCH 30.6 pg (26.0-34.0); MCHC 34.4 g/dL (31.0-37.0); MONOCYTES 8.9 % (2-11); RBC 5.09 10x6/uL (4.00-5.40); RDW 13.5 % (11.5-14.5); WBC 8.4 10x3/uL (4.8-10.8)
[2017-06-03 20:09] LABS: YEAST OCC /hpf (NONE SEEN)
[2017-06-03 20:10] LABS: PLATELET COUNT 291 10x3/uL (130-400)
[2017-06-03 20:40] LABS: ALBUMIN 3.6 g/dL (3.4-5.0); ALKALINE PHOSPHATASE 112 U/L (46-116); ALT (SGPT) 24 U/L (10-68); BILIRUBIN - TOTAL 0.51 mg/dL (0.2-1.3); CALCIUM 8.7 mg/dL (8.5-10.1); CARBON DIOXIDE 23.2 mmol/L (21.0-32.0); CHLORIDE - SERUM 97 mmol/L (98-107); CKMB 0.8 U/L (0.0-3.6); CREATINE KINASE 113 UL (21-215); CREATININE - SERUM 1.1 mg/dL (0.6-1.3); POTASSIUM - SERUM 4.4 mmol/L (3.5-5.1); PROTEIN - SERUM 7.6 g/dL (6.4-8.2); SODIUM 133 mmol/L (136-145); UREA NITROGEN 22 mg/dL (7-18); eGFR NON AFRICAN AMERICAN 51 mL/min (90-120)
[2017-06-03 20:54] LABS: CALC OSMOLALITY 289 mosm/kg (275-300); TROPONIN-I < 0.017 ng/mL (0.000-0.060)
[2017-06-03 20:56] LABS: GLUCOSE 470 mg/dL (74-106)
[2017-06-03 22:00] VITALS: BP 137/63
--- NOTE | 2017-06-03 23:13 | NUR ---
PT RECIEVED FROM ER VIA WC TO ROOM 2104. DELAY IN ADMIT DUE TO COMPUTER ISSUES IN ROOM. PT IS ALERT AND ORIENTED X 4. STATES SHE IS HAVING TROUBLE REMEMBERING TO TAKE HER MEDICATIONS EVERY DAY AND THAT IS WHY SHE IS HERE. SHE ANSWERS ALL QUESTIONS APPROPRIATELY AT THIS TIME.
--- NOTE | 2017-06-03 23:51 | NUR ---
PT IS RESTING IN BED WITH EYES OPEN. LIGHTS OUT AT THIS TIME.
--- NOTE | 2017-06-04 02:39 | NUR ---
RESTING IN BED WITH EYES CLOSED.
--- NOTE | 2017-06-04 03:58 | NUR ---
COMMUTATOR UNDERCUTTER AT BEDSIDE TO OBTAIN VITALS, CALL LIGHT IN REACH. WILL CONTINUE WITH PLAN OF CARE.
[2017-06-04 04:12] VITALS: BP 141/96
--- NOTE | 2017-06-04 05:19 | NUR ---
PT RESTING IN BED WITH EYES OPEN. STATES SHE SLEPT OFF AND ON DURING THE NIGHT.
[2017-06-04 05:52] LABS: BASOPHILS 0.4 % (0-2); EOSINOPHILS 1.8 % (0-7); HEMATOCRIT 41.1 % (36.0-48.0); HEMOGLOBIN 13.7 g/dL (12-16); IMMATURE GRANULOCYTES 0.6 % (0-5); LYMPHOCYTES 36.9 % (15-50); MCH 29.9 pg (26.0-34.0); MCHC 33.3 g/dL (31.0-37.0); MCV 89.7 fL (80.0-100.0); MEAN PLATELET VOLUME 10.2 fL (7.4-10.4); MONOCYTES 10.5 % (2-11); NEUTROPHILS 49.8 % (40-80); PLATELET COUNT 272 10x3/uL (130-400); RBC 4.58 10x6/uL (4.00-5.40); RDW 13.5 % (11.5-14.5); WBC 6.7 10x3/uL (4.8-10.8)
[2017-06-04 06:15] LABS: ANION GAP 13.2 mmol/L (8-16); CALCIUM 8.4 mg/dL (8.5-10.1); CARBON DIOXIDE 25.4 mmol/L (21.0-32.0); CREATININE - SERUM 0.9 mg/dL (0.6-1.3)
[2017-06-04 06:18] LABS: POTASSIUM - SERUM 3.6 mmol/L (3.5-5.1)
--- NOTE | 2017-06-04 07:24 | NUR ---
PT LAYING TO LEFT SIDE SLEEPING NO S/S DISTRESS NOTED RR EVEN AND UNLABORED WILL CONT TO MONITOR
[2017-06-04 09:11] VITALS: BP 140/61
[2017-06-04 12:50] VITALS: BP 129/63
[2017-06-04 13:07] VITALS: Ht 167.6 cm; Wt 90.9 kg
--- NOTE | 2017-06-04 15:45 | NUR ---
Patient Name: GARCIA MÁRQUEZ Admission Status: ER Accout number: [id number] Admission Date: 06-03-2017 : 1940 Admission Diagnosis: Attending: FAUSTO Current LOS: 1 Anticipated DC Date: 06-06-2017 Planned Disposition: Usp Facility Primary Insurance: MEDICARE A & B PLANNED EXTERNAL PROVIDER: [facility], MEDICARE REHAB BED Discharge Planning Comments: * Is the patient Alert and Oriented? Yes 0 * How many steps to enter\exit or inside your home? 1 0 * PCP DR. STONE 0 * Pharmacy [facility], [facility] OR [facility] MAIL ORDERG 0 * Preadmission Environment Home Alone 0 * ADLs Independent 0 * Equipment Glucometer 0 * Other Equipment NO MEDICAL EQUIPMENT PROVIDER PREFERENCE 0 * List name and contact numbers for known caregivers / representatives who currently or will assist patient after discharge: ALDO ROMERO, DAUGHTER, 0 * Community resources currently utilized None 0 * Please name any agencies selected above. NONE 0 * Additional services required to return to the preadmission environment? Yes * Can the patient safely return to the preadmission environment? Yes 0 * Has this patient been hospitalized within the prior 30 days at any hospital? No 0 CM RECEIVED ORDER FOR PLACEMENT, MET WITH PT IN ROOM TO DISCUSS DISCHARGE PLANNING AND NEEDS. PT REPORTS LIVING AT HOME INDEPENDENTLY AND ALONE. PT REPORTS SHE HAS BEEN HAVING TROUBLE REMEMBERING WHEN SHE HAS EATEN OR TAKEN HER MEDICINE WHICH HAS CAUSED HER TO BE IN THE HOSPITAL. PT HAS A GLUCOMETER AND NO MEDICAL EQUIPMENT PROVIDER. PT HAS NO OUTSIDE SERVICES ASSISTING IN THE HOME. CM DISCUSSED AVAILABILITY OF HOME HEALTH, REHAB SERVICES AND MEDICAL EQUIPMENT. PT IS NOT INTERESTED IN RETIREMENT CARE BUT WILL GO FOR REHAB TO [place]. PT STATES THE DOCTOR AND HER DAUGHTER THINK SHE NEEDS TO NOT LIVE ALONE ANYMORE, BUT PT IS NOT READY TO MAKE THAT DECISION. IMPORTANT MESSAGE FROM MEDICARE PROVIDED AND EXPLAINED. CHOICE SIGNED FOR [place]. [facility], , LEFT MESSAGE FOR MEKA AND FAXED REFERRAL TO [facility] AT [phone]. CM WILL NEED TO FAX PHYSICAL THERAPY EVALUATION RESULTS WHEN COMPLETED TO [place] AT [phone], FOR THE FACILITY TO COMPLETE ADMISSION ASSESSMENT. Bake Room Worker: Andre Ibrahim
[2017-06-04 16:53] VITALS: BP 118/57
--- NOTE | 2017-06-04 17:58 | NUR ---
PT SITTING UP IN BED SLEEPING RR EVEN AND UNLABORED NO S/S DISTRESS NOTED
--- NOTE | 2017-06-04 19:42 | NUR ---
Received patient in bed resting quietly, PIV in left forearm is infusing NS @125ml/hr, slight redness noted at sight, will monitor, patient denies pain or discomfort.
[2017-06-04 21:16] VITALS: BP 158/66
[2017-06-05] VITALS: BP 136/50
--- NOTE | 2017-06-05 02:32 | NUR ---
Respirations easy and regular, no signs of distress, sleeping, eyes closed.
[2017-06-05 04:35] VITALS: BP 132/68
--- NOTE | 2017-06-05 06:17 | NUR ---
Found patient standing at the door had pulled her IV tubing apart and NS infusing all over the bed, PIV has small amount of drainage from site but patient is refusing to be hooked back up to IV pump at this time. Confused, and slow to respond. Bed linens changed, patient wanted to put on own nightgown and annette, assisted with same. No IV infusing at this time.
--- NOTE | 2017-06-05 07:45 | NUR ---
PT SITTING UP IN BED SLEEPING ARROUSES EASILY. PT HAS BEEN REFUSING TO BE HOOKED UP TO IV FLUIDS AND HAS UNHOOKED HERSELF SEVERAL TIMES DURING THE NIGHT. PUMP IS TURNED OFF AT THIS TIME PER PT REQUEST. PT DENIES ANY NEEDS WILL CONT TO MONITOR
--- NOTE | 2017-06-05 08:06 | NUR ---
Patient Name: GARCIA MÁRQUEZ Encounter No: [id number] : 1940 Primary Insurance: MEDICARE A & B Anticipated DC Date: 06-06-2017 Planned Disposition: Fdc Facility External Planned Provider: [facility], MEDICARE REHAB BED DCP follow-up note: CM CALLED [facility], , LEFT MESSAGE FOR MEKA AND FAXED PT EVALUATION AND UPDATED CLINICALS TO [facility] AT [phone]. CM WAITING ADMISSION DETERMINATION FROM [facility]. Extra Hand: Andre Ibrahim
[2017-06-05 09:33] VITALS: BP 132/63
--- NOTE | 2017-06-05 09:48 | NUR ---
CM RECEIVED DISCHARGE ORDERS, FAXED DISCHARGE INFORMATION TO [facility], CM CALLED MEKA OF [facility] AT [phone], WAS ADVISED SHE WAS IN MORNING MEETING; CM LEFT MESSAGE FOR RETURN CALL. CM SPOKE TO PT IN ROOM, NOTIFIED OF DISCHARGE, PT REPORTS BEING AWARE. CM EXPLAINED THAT PT DOES NOT HAVE THREE MIDNIGHTS IN HOSPITAL FOR MEDICARE TO PAY FOR REHAB STAY. PT REPORTS SHE HAS THE MONEY TO PAY FOR HER STAY AT [facility]. PT REPORTS SHE WILL CALL HER SON IN LAW, ANDRY, TO TAKE HER TO THE FACILITY TODAY. CM EXPLAINED THAT THE FACILITY HAS NOT YET ACCEPTED. PT WILL CALL ANDRY TO ARRANGE TRANSPORTATION. CM WAITING CALL FROM [facility] FOR ADMISSION DETERMINATION. ZACH ASH, CASE MANAGEMENT
--- NOTE | 2017-06-05 11:13 | NUR ---
DC PIV WITH CATH TIP INTACT PER PT REQUEST. PT IS BEING DC HOME TODAY AND IS ALREADY FULLY DRESSED AND HAS HER SUIT CASE PACKED AND READY TO GO TO [facility]. WILL DC PT WHEN DC PAPERS ARE READY
--- NOTE | 2017-06-05 11:36 | NUR ---
Patient Name: GARCIA MÁRQUEZ Encounter No: [id number] : 1940 Primary Insurance: MEDICARE A & B Anticipated DC Date: 06-05-2017 Planned Disposition: Nursing Facility [facility] [employer] External Planned Provider: [facility], PRIVATE PAY JAIL CARE BED DCP follow-up note: CM RECEIVED CALL FROM MEKA OF [facility], , WHO REPORTS THEY WILL ACCEPT PT AT THE FACILITY AFTER 1PM. CUSTODIAL SERVICES MANAGER NOTIFIED. BEDSIDE NURSE NOTIFIED. PT NOTIFIED. PT'S DAUGHTER ARRIVED AND WANTS TO GO AHEAD AND TAKE PT HOME TO PACK SOME THINGS. CM ADVISED THAT PT CANNOT ADMIT TO [facility] UNTIL AFTER 1PM TODAY. JOEY REPORTS UNDERSTANDING. NURSE REPORT TO BE CALLED TO [facility] AT [phone]. Andre Ibrahim, CASE MANAGEMENT
--- NOTE | 2017-06-05 11:38 | NUR ---
WENT OVER DC PAPERWORK WITH PT AND PT DAUGHTER BOTH VERBALIZE UNDERSTANDING. PT GOING IN WHEELCHIAR TO FRONT ENTRANCE WHERE DAUGHTER WILL PICK HER UP AND DRIVE HER HOME TO PACK HER THINGS BEFORE BEING ADMITTED TO [facility]
--- NOTE | 2017-06-05 11:56 | NUR ---
CALLED REPORT TO HENRIQUE AT REHAB
--- NOTE | 2017-06-07 20:02 | HP ---
PATIENT: GARCIA MÁRQUEZ MEDICAL RECORD: [id number] ACCOUNT: [id number] LOCATION:[address] : [birth year] ADMISSION DATE: 06/03/17 HISTORY AND PHYSICAL EXAMINATION REASON FOR ADMISSION: Uncontrolled diabetes mellitus, urinary dysuria. HISTORY OF PRESENT ILLNESS: The patient is a 76-year-old female with longstanding history of diabetes mellitus, poorly controlled. She has had poor dietary and medication compliance historically. She has been hospitalized twice this year for similar episodes of uncontrolled diabetes mellitus simply due to poor dietary compliance and medicine compliance. I had had a family tangirnaq meeting about a month ago concerning this and she has done better for a short period, but her daughter works box liner, so cannot be at the home to give her sliding scale insulin. Her diet is very well and friends bring food in to the home. The patient has home health care and was noted to have a blood sugar of over 400 last Thursday, we attempted to have her come to the Emergency Room and she flatly refused to come. It was over 500 yesterday and despite her demands not to come to the hospital, I instructed EMS to bring her to the ED. She denied chest pain or fever, but did admit to some dysuria and chronic incontinence. So, on admission, her amylase and lipase were normal. Blood sugar was 470, BUN and creatinine of 22 and 1.1, CO2 of 23.2. Her urine showed pyuria. She was admitted to the hospital for control of her diabetes and placed in a alf for care. She historically proven she cannot take care of herself at home. PAST MEDICAL HISTORY: Brittle type 2 insulin-dependent diabetes mellitus, last hospitalized November 2016, hyperlipidemia, chronic atrial fibrillation, flutter, sick sinus syndrome with pacemaker, CAD with left circumflex PTCA on November 2011; depression, postmenopausal status, hypertension, IBS, mitral and tricuspid regurgitation. PAST SURGICAL HISTORY: She has had pacemaker placement with a generator replacement, hemorrhoidectomy, bilateral cataract surgery, appendectomy, repair of deviated nasal septum, SECOND VP HR ASSESSMENT stent on the left circumflex in November 2015 and 2011. [facility]. FAMILY HISTORY: The patient's sister from amyloidosis and myeloma. SOCIAL HISTORY: She is . She lives alone. Her daughter tries to help care for her, but she is a box liner sat math tutor and cannot be there 18/05. She is a lifetime nonsmoker and nondrinker. ALLERGIES: ACTOS, ALTACE, BENADRYL, CLARITIN, GLUCOPHAGE, KEFLEX, NASONEX, ZOCOR, ULTRAM, SULFA AND PENICILLIN. HOME MEDICATIONS: Effient 10 mg p.o. daily, Cozaar 100 mg p.o. at h.s., metoprolol 50 mg p.o. b.i.d., Lasix 20 mg p.o. q.a.m., potassium chloride 10 mEq p.o. t.i.d., Dexilant 60 mg p.o. daily, Linzess in 145 mcg capsule p.o. q.h.s., Levemir 35 units subQ b.i.d. a.c. with sliding scale Humalog insulin, insulin intermediate scale, B12 of 1000 mcg IM every 14 days. REVIEW OF SYSTEMS: GENERAL: She feels chronically fatigued, no recent fever. HEENT: She has adequate vision. No recent sinus congestion, sore throat or HISTORY AND PHYSICAL [id number] GARCIA MÁRQUEZ hearing difficulty. RESPIRATORY: No severe cough. CARDIAC: No exertional chest pain, claudication or edema. GASTROINTESTINAL: No nausea, vomiting, change in stools or blood per rectum. GENITOURINARY: Mild stress incontinence and some dysuria, no hematuria. GYNECOLOGICAL: No vaginal bleeding. INTEGUMENTARY: No rash or itching. PSYCHIATRIC: Admits to chronically depressed mood. NEUROLOGIC: Denies headache, visual change or memory loss. PHYSICAL EXAMINATION: VITAL SIGNS: Temperature 97.9 Fahrenheit orally, pulse 63 and irregular, respirations are 16, blood pressure 137/63 with a sat of 96% on room air. HEENT: Normocephalic. Eyes are clear with lens implants OU. Sclerae nonicteric. Oropharynx unremarkable except for some dry mucous membranes. NECK: Supple, without bruits. CHEST: Clear. HEART: Irregular rate without gallop. ABDOMEN: Soft, nontender, no organomegaly. PELVIC: Deferred. EXTREMITIES: 2+ mild pedal edema. NEUROLOGIC: Oriented to person, place, and time. Cranial nerves grossly intact. Gait is normal. PSYCHIATRIC: She has somewhat flat affect, depressed mood. Denies suicidal ideation. She states that she is "bored". LABORATORY DATA: Lab shows a white count of 8400 with normal diff, platelet count is 291,000. Chemistries: Sodium 133, potassium 4.4, BUN and creatinine are 22 and 1.1 and blood sugar is 270. Liver functions are normal. Cardiac enzymes are negative. Serum CO2 is 23.2. UA shows small ketones, 5-10 red cells, 25-50 white cells per high powered field, occasional yeast. IMAGING: Chest x-ray shows no acute cardiopulmonary disease with pacemaker leads in place. ASSESSMENT: 1. Uncontrolled diabetes mellitus. 2. Urinary tract infection. 3. Medication noncompliance. 4. Coronary artery disease. 5. Brittle type 2 diabetes mellitus, insulin-dependent. 6. Chronic depression. 7. Hypertension. PLAN: The patient will be admitted for fluids, sliding scale insulin, diet management. The patient agrees to and will need alf placement. TRANSINT:[id number] Voice Confirmation ID: [id number] DOCUMENT ID: [id number] HISTORY AND PHYSICAL [id number] GARCIA MÁRQUEZ TIMOTHY MD at 2001 CC: [id number] DICTATION DATE: 06/04/17812 CODING SPECIALIST HOME HEALTH: 06/04/17 1224 DIS IN 06/05/17 [facility] [address] [place] [address]
== END 2017-06-05 11:56 | DRG 638 ==
LOC: D.ER 18:40 → D.M2 21:19
PROVIDERS: Family Medicine; ADMIT Family Medicine
DX: E11.65 Type 2 diabetes mellitus with hyperglycemia (principal); I48.92 Unspecified atrial flutter; N39.0 Urinary tract infection, site not specified; E11.40 Type 2 diabetes mellitus with diabetic neuropathy, unspecified; Z79.4 Long term (current) use of insulin; Z91.14 Patient's other noncompliance with medication regimen; E78.5 Hyperlipidemia, unspecified; I48.2 Chronic atrial fibrillation; I25.10 Atherosclerotic heart disease of native coronary artery without angina pectoris; F32.9 Major depressive disorder, single episode, unspecified; I10 Essential (primary) hypertension; K58.9 Irritable bowel syndrome, unspecified; I08.1 Rheumatic disorders of both mitral and tricuspid valves; Z78.0 Asymptomatic menopausal state; Z95.0 Presence of cardiac pacemaker; Z95.5 Presence of coronary angioplasty implant and graft

== ENCOUNTER 2018-03-03 11:13 | Emergency (ER) | payer MEDICARE, OTHER ==
[2018-03-03 11:48] LABS: BASOPHILS 0.3 % (0-2); EOSINOPHILS 1.2 % (0-7); HEMATOCRIT 41.5 % (36.0-48.0); IMMATURE GRANULOCYTES 0.2 % (0-5); MCH 30.1 pg (26.0-34.0); MCHC 33.7 g/dL (31.0-37.0); MCV 89.2 fL (80.0-100.0); MEAN PLATELET VOLUME 10.2 fL (7.4-10.4); NEUTROPHILS 62.3 % (40-80); PLATELET COUNT 226 10x3/uL (130-400); RBC 4.65 10x6/uL (4.00-5.40); RDW 13.3 % (11.5-14.5); WBC 8.9 10x3/uL (4.8-10.8)
[2018-03-03 12:16] LABS: ALBUMIN 3.2 g/dL (3.4-5.0); ALKALINE PHOSPHATASE 91 U/L (46-116); ALT (SGPT) 14 U/L (10-68); BILIRUBIN - TOTAL 0.42 mg/dL (0.2-1.3); CALC OSMOLALITY 282 mosm/kg (275-300); CALCIUM 8.9 mg/dL (8.5-10.1); CHLORIDE - SERUM 101 mmol/L (98-107); CREATININE - SERUM 0.8 mg/dL (0.6-1.3); POTASSIUM - SERUM 4.2 mmol/L (3.5-5.1); PROTEIN - SERUM 6.9 g/dL (6.4-8.2); SODIUM 134 mmol/L (136-145); UREA NITROGEN 16 mg/dL (7-18); eGFR NON AFRICAN AMERICAN 73 mL/min (90-120)
[2018-03-03 12:17] LABS: GLUCOSE 343 mg/dL (74-106)
[2018-03-03 12:25] LABS: CHOL - HDL RATIO 5.8 ratio (2.3-4.1); CHOLESTEROL, TOTAL 202 mg/dL (0-200); CKMB 0.6 U/L (0.0-3.6); CREATINE KINASE 53 UL (21-215); HDL CHOLESTEROL 35 mg/dL (32-96); LDL CHOLESTEROL 122 mg/dL (0-100); LDL-HDL RATIO 3.5 ratio (1.5-3.5); TRIGLYCERIDE 226 mg/dL (30-200)
[2018-03-03 12:33] LABS: TROPONIN-I < 0.017 ng/mL (0.000-0.060)
== END 2018-03-03 14:10 | disposition home or self-care (01) ==
LOC: D.ER 11:13
PROVIDERS: Family Medicine
DX: R07.89 Other chest pain (principal)

== ENCOUNTER 2020-05-02 05:58 | Inpatient (IN) | payer MEDICARE, OTHER ==
[~2020-05-02] VITALS: Ht 167.6 cm; Wt 100.0 kg
[2020-05-02] MEDS ORDERED: LEVEMIR IN100 UNITS/ SC (06:09)
[2020-05-02] MEDS ORDERED: SYNTHROID25 MCG PO (06:10)
[2020-05-02] MEDS ORDERED: LINZESS145 MCG PO (06:10)
[2020-05-02] MEDS ORDERED: PRAVACHOL40 MG PO (06:11)
[2020-05-02] MEDS ORDERED: MOBIC7.5 MG PO (06:11)
[2020-05-02] MEDS ORDERED: PROTONIX40 MG PO (06:11)
[2020-05-02] MEDS ORDERED: EFFIENT10 MG PO (06:13)
[2020-05-02] MEDS ORDERED: VOLTAREN100 GM TOPICAL (06:14)
[2020-05-02] MEDS ORDERED: ACETAMINOPHEN325 MG PO (06:14)
[2020-05-02 06:36] LABS: CALC OSMOLALITY 282 mosm/kg (275-300); CALCIUM 8.4 mg/dL (8.5-10.1); CARBON DIOXIDE 26.9 mmol/L (21.0-32.0); CHLORIDE - SERUM 104 mmol/L (98-107); POTASSIUM - SERUM 3.8 mmol/L (3.5-5.1); SODIUM 138 mmol/L (136-145); UREA NITROGEN 23 mg/dL (7-18); eGFR NON AFRICAN AMERICAN 56 mL/min (90-120)
[2020-05-02 06:37] LABS: GLUCOSE 148 mg/dL (74-106)
[2020-05-02 06:41] LABS: INR 1.01 (0.85-1.17); PROTIME 13.2 SECONDS (11.6-15.0)
[2020-05-02 06:53] LABS: ALBUMIN 3.2 g/dL (3.4-5.0); ALKALINE PHOSPHATASE 81 U/L (30-120); ALT (SGPT) 15 U/L (10-68); AMYLASE - SERUM 24 U/L (25-115); BILIRUBIN - TOTAL 0.63 mg/dL (0.2-1.3); CKMB 0.7 U/L (0.0-3.6); CREATINE KINASE 56 UL (21-215); LIPASE 90 U/L (73-393); MAGNESIUM - SERUM 1.7 mg/dL (1.8-2.4); TROPONIN-I 0.017 ng/mL (0.000-0.060)
[2020-05-02 06:55] LABS: BASOPHILS 0.2 % (0-2); EOSINOPHILS 1.8 % (0-7); HEMATOCRIT 41.4 % (36.0-48.0); HEMOGLOBIN 13.3 g/dL (12-16); IMMATURE GRANULOCYTES 0.5 % (0-5); LYMPHOCYTES 30.4 % (15-50); MCH 29.3 pg (26.0-34.0); MCHC 32.1 g/dL (31.0-37.0); MCV 91.2 fL (80.0-100.0); MEAN PLATELET VOLUME 9.7 fL (7.4-10.4); MONOCYTES 8.2 % (2-11); NEUTROPHILS 58.9 % (40-80); PLATELET COUNT 268 10x3/uL (130-400); RBC 4.54 10x6/uL (4.00-5.40); RDW 13.6 % (11.5-14.5); WBC 9.4 10x3/uL (4.8-10.8)
[2020-05-02 07:10] VITALS: BP 130/59
[2020-05-02 07:17] LABS: BILIRUBIN NEGATIVE (NEGATIVE); GLUCOSE 250 mg/dL (NEGATIVE); KETONE NEGATIVE (NEGATIVE); NITRITE NEGATIVE (NEGATIVE); RED CELLS - URINE 0-5 /hpf (0-5); SPECIFIC GRAVITY 1.015 (1.005-1.020); UROBILINOGEN NORMAL (NORMAL); WHITE CELLS - URINE >50 /hpf (NEGATIVE)
[2020-05-02 07:18] LABS: BACTERIA FEW /hpf (NEGATIVE); EPITHELIAL CELLS 0-5 /hpf (0-5); YEAST >1+ /hpf (NONE SEEN)
[2020-05-02 08:15] VITALS: BP 133/57
[2020-05-02 12:23] VITALS: BP 116/46
[2020-05-02 13:26] LABS: CKMB 0.6 U/L (0.0-3.6); CREATINE KINASE 71 UL (21-215); TROPONIN-I 0.017 ng/mL (0.000-0.060)
[2020-05-02 13:28] VITALS: BP 133/57; Ht 167.6 cm; Wt 100.0 kg
[2020-05-02 15:58] VITALS: BP 120/51
--- NOTE | 2020-05-02 18:29 | NUR ---
REPORT TO TANNER BAKER AT THIS TIME. ROOM IS DIRTY, WILL CALL WHEN ROOM IS CLEAN.
[2020-05-02 19:07] LABS: CKMB 0.6 U/L (0.0-3.6); CREATINE KINASE 101 UL (21-215)
[2020-05-02 19:08] LABS: TROPONIN-I < 0.017 ng/mL (0.000-0.060)
[2020-05-02 20:00] VITALS: BP 150/62
[2020-05-03] VITALS: BP 116/41
[2020-05-03 01:25] LABS: CKMB 0.8 U/L (0.0-3.6); CREATINE KINASE 104 UL (21-215); TROPONIN-I 0.023 ng/mL (0.000-0.060)
--- NOTE | 2020-05-03 02:46 | NUR ---
RESTING WITH EYES CLOSED, RESPERATIONS EVEN, NO S/S DISTRESS NOTED.
[2020-05-03 04:00] VITALS: BP 153/64
[2020-05-03 05:38] LABS: BASOPHILS 0.2 % (0-2); EOSINOPHILS 1.5 % (0-7); HEMATOCRIT 43.5 % (36.0-48.0); HEMOGLOBIN 13.6 g/dL (12-16); IMMATURE GRANULOCYTES 0.2 % (0-5); LYMPHOCYTES 24.7 % (15-50); MCH 29.3 pg (26.0-34.0); MCHC 31.3 g/dL (31.0-37.0); MEAN PLATELET VOLUME 9.9 fL (7.4-10.4); MONOCYTES 9.8 % (2-11); NEUTROPHILS 63.6 % (40-80); PLATELET COUNT 259 10x3/uL (130-400); RBC 4.64 10x6/uL (4.00-5.40); RDW 13.8 % (11.5-14.5)
[2020-05-03 05:43] LABS: MCV 93.8 fL (80.0-100.0)
[2020-05-03 06:19] LABS: ALBUMIN 3.3 g/dL (3.4-5.0); ANION GAP 11.2 mmol/L (8-16); BILIRUBIN - TOTAL 0.48 mg/dL (0.2-1.3); CALCIUM 8.6 mg/dL (8.5-10.1); CARBON DIOXIDE 27.4 mmol/L (21.0-32.0); CHOL - HDL RATIO 5.2 ratio (2.3-4.1); CREATININE - SERUM 1.2 mg/dL (0.6-1.3); LDL-HDL RATIO 2.9 ratio (1.5-3.5); PROTEIN - SERUM 6.6 g/dL (6.4-8.2)
[2020-05-03 06:20] LABS: POTASSIUM - SERUM 4.6 mmol/L (3.5-5.1)
--- NOTE | 2020-05-03 07:23 | HP ---
PATIENT: GARCIA MÁRQUEZ MEDICAL RECORD: [id number] ACCOUNT: [id number] LOCATION:[address] : 38 ADMISSION DATE: 05/02/20 PCP: No PCP HISTORY AND PHYSICAL EXAMINATION REASON FOR ADMISSION: Chest pains. HISTORY OF PRESENT ILLNESS: The patient is an 79-year-old female with metabolic syndrome with previous history of PTCA, sick sinus syndrome and pacemaker placement. She lives in [facility] and said she had felt well until she was awakened at 4:00 a.m. with substernal chest discomfort. She rated as a 5/10, associated with some nausea, did not radiate, was fairly constant. EMS was called. They offered her an aspirin and nitroglycerin, which she refused because of her nausea. She is now in the ED, pain has improved on its own, down to a 3/10, but still having it. She denies any recent exertional chest pain or new onset fatigue, but she is not very active she states. PAST MEDICAL HISTORY: Brittle type 2 diabetic, but since in assisted living her blood sugars have improved. Her A1c is now 7.1, was over 12 previously and was hospitalized in 2017 for uncontrolled diabetes, hyperlipidemia, chronic atrial fibrillation-flutter, sick sinus syndrome with pacemaker, CAD with left circumflex PTCA in November of 2011, history of depression, postmenopausal status, essential hypertension, IBS, diarrhea, mitral and tricuspid regurgitation. PAST SURGICAL HISTORY: Pacemaker placement and generator exchange, hemorrhoidectomy, bilateral cataract surgery, appendectomy, repair of deviated nasal septum, COMMERCIAL PRODUCTION EDITOR stent of left circumflex in 2015, [facility]. FAMILY HISTORY: Sister from amyloidosis and myeloma. Parents had hypertension. SOCIAL HISTORY: She is . was [employer] officer. She has a daughter living in town who helps care for her. She now lives in assisted living, doing much better. Nonsmoker, nondrinker. ALLERGIES: ACTOS, ALTACE, BENADRYL, CLARITIN, GLUCOPHAGE, KEFLEX, NASONEX, ULTRAM, ZOCOR, SULFA AND PENICILLIN. CURRENT MEDICATIONS: Levothyroxine 25 mcg p.o. every morning, nitroglycerin sublingual p.r.n. chest pain, furosemide 20 mg p.o. b.i.d., Voltaren gel topically t.i.d. to affected joints, metoprolol tartrate 50 mg b.i.d., losartan 100 mg daily, her Effient is 10 mg daily, Protonix 40 mg a day, Linzess 145 mcg p.o. daily, pravastatin 40 mg at bedtime. She has a regular insulin sliding scale low resistance before meals, Levemir 50 units subQ b.i.d. before meals, potassium chloride ER 10 mEq t.i.d. after food. REVIEW OF SYSTEMS: GENERAL: No fever, fatigue, or weight change. HEENT: No recent visual change, sinus congestion, or sore throat. RESPIRATORY: No severe cough. CARDIAC: Rest chest pain as mentioned, awakened from sleep at 4:00 a.m., did not radiate. It lasted several hours. Denies palpitations or edema. It has been improved. No previous history of NJ, but has had angina in the past. GASTROINTESTINAL: No dyspepsia, change in stools, blood per rectum. HISTORY AND PHYSICAL [id number] GARCIA MÁRQUEZ GENITOURINARY: No incontinence. GYNECOLOGIC: No vaginal bleeding. ENDOCRINE: Denies polyuria, polydipsia, heat or cold intolerance. NEUROLOGICAL: No history of seizures. PHYSICAL EXAMINATION: VITAL SIGNS: Her pulse is 60 and regular, respirations are 18, blood pressure was 130/60 with a sat of 96% on room air. Weight of 228 pounds. HEENT: Normocephalic. Eyes are clear with lens implants to both eyes. NECK: Supple, without bruits or JVD. CHEST: Distant breath sounds without wheeze bilaterally. HEART: Regular rate without MGR. PMI appropriate. BREASTS: Not examined. ABDOMEN: Soft, obese, and nontender. No organomegaly or bruits. EXTREMITIES: 2+ pretibial edema to the knees. Homans sign negative. NEUROLOGIC: Grossly intact. Gait was not tested. LABORATORY DATA: Cardiac enzymes initially are negative. Urine is cloudy with 50+ white cells, 2+ bacteria and cloudy, creatinine is 1.0, BUN is 23, glucose nonfasting is 148. Magnesium is 1.7, which is low. EKG shows LAD, LBB, no acute changes. Poor anterior R waves suggestive of remote anterior NJ. ASSESSMENT: 1. Rest chest pain in high risk patient for coronary artery disease. 2. Metabolic syndrome. 3. Sick sinus syndrome with pacemaker. 4. Hypertension. 5. Hyperlipidemia. PLAN: The patient will be admitted for cardiac injury rule out. She has agreed to take nitroglycerin now to help relieve her pain and an aspirin as well as her nausea has improved with Zofran. Cardiology will be consulted. Further workup pending clinical course. TRANSINT:[id number] Voice Confirmation ID: [id number] DOCUMENT ID: [id number] ALLEY STONE MD at 0723 CC: [id number] DICTATION DATE: 05/02/20927 PLATFORM MILL SUPERVISOR: 05/02/20 1338 ADM IN [place] [id number] [place] [id number]
[2020-05-03 11:22] VITALS: BP 160/68
[2020-05-03 14:57] VITALS: BP 138/63
[2020-05-03 18:54] VITALS: BP 149/57
[2020-05-03 20:00] VITALS: BP 128/53
[2020-05-04] VITALS: BP 118/60
[2020-05-04 04:00] VITALS: BP 128/69
[2020-05-04 06:29] LABS: CALCIUM 8.2 mg/dL (8.5-10.1); CARBON DIOXIDE 30.3 mmol/L (21.0-32.0); CHLORIDE - SERUM 104 mmol/L (98-107); CREATININE - SERUM 1.2 mg/dL (0.6-1.3); SODIUM 139 mmol/L (136-145); UREA NITROGEN 30 mg/dL (7-18); eGFR NON AFRICAN AMERICAN 46 mL/min (90-120)
[2020-05-04 06:33] LABS: CALC OSMOLALITY 288 mosm/kg (275-300); GLUCOSE 197 mg/dL (74-106); POTASSIUM - SERUM 3.9 mmol/L (3.5-5.1); TROPONIN-I < 0.017 ng/mL (0.000-0.060)
[2020-05-04] MEDS ORDERED: DIFLUCAN100 MG PO (07:22)
--- NOTE | 2020-05-04 09:33 | MORECARE ---
CASE MANAGEMENT DISCHARGE SUMMARY PATIENT: GARCIA MÁRQUEZ UNIT: [id number] ADM DATE: 05/03/20 AGE: 79 : 38 SEX: F ROOM/BED: D.2124 AUTHOR: SHOBHA KENNEY PHYSICIAN: REFERRING PHYSICIAN: ALLEY STONE MD DATE OF SERVICE: 05/04/20 Discharge Plan Patient Name: GARCIA MÁRQUEZ [facility] [facility] 1940 Planned Disposition: Assisted Living Anticipated Discharge Date: Discharge Date: Expected LOS: Initial Reviewer: [email or web address] Initial Review Date: 05/02/2020 Generated: 05/04/20 10:32 am Coverage Notice Reviewer: [email or web address] - Pebbles Lee Notice Issued Date-Time: 05/02/2020 11:24 Notice Type: Medicare Outpatient Observation Notice Notice Delivered To: Patient Relationship to Patient: Delphi Programmer Name: Delivery Method: HAND - Hand Delivered Sheyla Days: Prior Verbal Notification: Recipient Understood Notice: Yes Recipient Signature: Yes Med Rec Note Co-signed by Attending: Coverage Notice Comment: MOCTEZUMA SERVED, EXPLAINED, AND SIGNED BY PATIENT. THE ORIGINAL WAS PROVIDED TO THE PATIENT AND COPY PLACED ON CHART. Patient Name: GARCIA MÁRQUEZ Page [id number] at 0933 All edits/amendments must be made on the electronic document DICTATION DATE: 05/04/20931 AIR POLLUTION SPECIALIST: MATHEW 05/04/20931 RPT#: [id number] DC DATE: STATUS: ADM IN [facility] [address] [place] [address] END OF REPORT
--- NOTE | 2020-05-04 09:39 | MORECARE ---
CASE MANAGEMENT DISCHARGE SUMMARY PATIENT: GARCIA MÁRQUEZ UNIT: [id number] ADM DATE: 05/03/20 AGE: 79 : 38 SEX: F ROOM/BED: D.5064 AUTHOR: SHOBHA KENNEY PHYSICIAN: REFERRING PHYSICIAN: ALLEY STONE MD DATE OF SERVICE: 05/04/20 Discharge Plan Patient Name: GARCIA MÁRQUEZ Facility: [facility]:[place] : 1940 Planned Disposition: Assisted Living Anticipated Discharge Date: Discharge Date: Expected LOS: Initial Reviewer: [email or web address] Initial Review Date: 05/02/2020 Generated: 05/04/20 10:39 am Comments DCP- Discharge Planning Updated by [email or web address]: Pebbles Lee on 05/04/20 8:[address] Patient Name: GARCIA MÁRQUEZ Admission Status: ER Accout number: [id number] Admission Date: 05-03-2020 : 1940 Admission Diagnosis: Attending: ALLEY STONE Current LOS: 1 Anticipated DC Date: Planned Disposition: Assisted Living Primary Insurance: MEDICARE A & B Discharge Planning Comments: CM met with patient to complete initial dc planning assessment. CM educated patient on the CM role and verbal consent given by patient to complete assessment. Patient is a resident at [place] [phone]. MARY signed to return. CM spoke with Xiomara PELAYO who request the patient have a covid test prior to returning. Covid test ordered and patient was tested by Derrek HART. She will return to the facility at time of discharge. Patient agrees this is a safe discharge plan. Transportation provider at discharge will be a van from [facility]. DC IMM delivered, explained, signed by the patient, and placed in chart. Signed form also left with the patient. CM will continue to follow and will assist as needed with dc plans/needs. Clinical Implementation Specialist: Pebbles Lee Coverage Notice Reviewer: [id number] - Pebbles Lee Notice Issued Date-Time: 05/02/2020 11:24 Notice Type: Medicare Outpatient Observation Notice Notice Delivered To: Patient Relationship to Patient: Felt Strip Finisher Name: Delivery Method: HAND - Hand Delivered Sheyla Days: Prior Verbal Notification: Recipient Understood Notice: Yes Recipient Signature: Yes Med Rec Note Co-signed by Attending: Coverage Notice Comment: RHIANNA SERVED, EXPLAINED, AND SIGNED BY PATIENT. THE ORIGINAL WAS PROVIDED TO THE PATIENT AND COPY PLACED ON CHART. Last DP export: 05/04/20 8:33 a Patient Name: GARCIA MÁRQUEZ Page [phone] at 0939 All edits/amendments must be made on the electronic document DICTATION DATE: 05/04/20938 OPTICAL LABORATORY TECHNICIAN: MATHEW 05/04/20938 RPT#: [id number] DC DATE: STATUS: ADM IN [facility] [address] [place] [address] END OF REPORT
--- NOTE | 2020-05-04 10:33 | NUR ---
ATTEMPTED TO CALL REPORT 3 DIFFERENT TIMES TO [facility] BUT WAS UNSUCCESSFUL EACH TIME.
--- NOTE | 2020-05-04 10:40 | MORECARE ---
CASE MANAGEMENT DISCHARGE SUMMARY PATIENT: GARCIA MÁRQUEZ UNIT: [id number] ADM DATE: 05/03/20 AGE: 79 : 38 SEX: F ROOM/BED: D.4532 AUTHOR: SHOBHA KENNEY PHYSICIAN: REFERRING PHYSICIAN: ALLEY STONE MD DATE OF SERVICE: 05/04/20 Discharge Plan Patient Name: GARCIA MÁRQUEZ Facility: [facility]:[place] : 1940 Planned Disposition: Assisted Living Anticipated Discharge Date: Discharge Date: Expected LOS: Initial Reviewer: [email or web address] Initial Review Date: 05/02/2020 Generated: 05/04/20 11:39 am Comments DCP- Discharge Planning Updated by [email or web address]: Pebbles Lee on 05/04/20 9:[address] Patient Name: GARCIA MÁRQUEZ Admission Status: ER Accout number: [id number] Admission Date: 05-03-2020 : 1940 Admission Diagnosis: Attending: ALLEY STONE Current LOS: 1 Anticipated DC Date: Planned Disposition: Assisted Living Primary Insurance: MEDICARE A & B Discharge Planning Comments: CM met with patient to complete initial dc planning assessment. CM educated patient on the CM role and verbal consent given by patient to complete assessment. Patient is a resident at [facility] [phone]. MARY signed to return. CM spoke with Xiomara PELAYO who request the patient have a covid test prior to returning. Covid test ordered and patient was tested by Derrek HART. She will return to the facility at time of discharge. Patient agrees this is a safe discharge plan. Transportation provider at discharge will be a van from [facility]. DC IMM delivered, explained, signed by the patient, and placed in chart. Signed form also left with the patient. CM will continue to follow and will assist as needed with dc plans/needs. 05/04/20. Xiomara from [facility] called back and stated they will accept the patient back today. Stated the Van will pharmacy picking technician patient at 1100. Report can be called to the nurse at [phone]. Butt Maker: Pebbles Lee Coverage Notice Reviewer: [id number] - Pebbles Lee Notice Issued Date-Time: 05/02/2020 11:24 Notice Type: Medicare Outpatient Observation Notice Notice Delivered To: Patient Relationship to Patient: Poultry Picking Machine Tender Name: Delivery Method: HAND - Hand Delivered Sheyla Days: Prior Verbal Notification: Recipient Understood Notice: Yes Recipient Signature: Yes Med Rec Note Co-signed by Attending: Coverage Notice Comment: MOCTEZUMA SERVED, EXPLAINED, AND SIGNED BY PATIENT. THE ORIGINAL WAS PROVIDED TO THE PATIENT AND COPY PLACED ON CHART. Last DP export: 05/04/20 8:39 a Patient Name: GARCIA MÁRQUEZ Page [id number] at 1040 All edits/amendments must be made on the electronic document DICTATION DATE: 05/04/20 1039 SEWAGE TREATMENT PLANT OPERATOR: MATHEW 05/04/20 1039 RPT#: [id number] DC DATE: STATUS: ADM IN [facility] [address] [place] [address] END OF REPORT
--- NOTE | 2020-05-04 13:18 | NUR ---
PT DISCHARGED HOME VIA WHEELCHAIR WITH TRANSPORT. PIV REMOVED WITH CATHETER TIP FULLY INTACT. PT SIGNED PROPER DISCHARGE INSTRUCTIONS AND REMOVED ALL VALUABLES FROM THE ROOM.
--- NOTE | 2020-05-04 17:48 | MORECARE ---
CASE MANAGEMENT DISCHARGE SUMMARY PATIENT: GARCIA MÁRQUEZ UNIT: [id number] ADM DATE: 05/03/20 AGE: 79 : 38 SEX: F ROOM/BED: D.1852 AUTHOR: SHOBHA KENNEY PHYSICIAN: REFERRING PHYSICIAN: ALLEY STONE MD DATE OF SERVICE: 05/04/20 Discharge Plan Patient Name: GARCIA MÁRQUEZ Facility: [facility]:[place] : 1940 Planned Disposition: Assisted Living Anticipated Discharge Date: Discharge Date: 05/04/2020 Expected LOS: Initial Reviewer: [email or web address] Initial Review Date: 05/02/2020 Generated: 05/04/20 6:48 pm Comments DCP- Discharge Planning Updated by [email or web address]: Pebbles Lee on 05/04/20 9:[address] Patient Name: GARCIA MÁRQUEZ Admission Status: ER Accout number: [id number] Admission Date: 05-03-2020 : 1940 Admission Diagnosis: Attending: ALLEY STONE Current LOS: 1 Anticipated DC Date: Planned Disposition: Assisted Living Primary Insurance: MEDICARE A & B Discharge Planning Comments: CM met with patient to complete initial dc planning assessment. CM educated patient on the CM role and verbal consent given by patient to complete assessment. Patient is a resident at [facility] [place] [phone]. MARY signed to return. CM spoke with Xiomara PELAYO who request the patient have a covid test prior to returning. Covid test ordered and patient was tested by Derrek HART. She will return to the facility at time of discharge. Patient agrees this is a safe discharge plan. Transportation provider at discharge will be a van from [facility]. DC IMM delivered, explained, signed by the patient, and placed in chart. Signed form also left with the patient. CM will continue to follow and will assist as needed with dc plans/needs. 05/04/20. Xiomara from [facility] called back and stated they will accept the patient back today. Stated the Van will quill picking machine operator patient at 1100. Report can be called to the nurse at [phone]. Procurement Cost Coordinator: Pebbles Lee External Providers External Provider: [facility] Next Contact Date: Service Request Date: Service Type: Resolution: Reviewer: Comments: Coverage Notice Reviewer: [id number] Edgar Pebbles Rosa Notice Issued Date-Time: 05/02/2020 11:24 Notice Type: Medicare Outpatient Observation Notice Notice Delivered To: Patient Relationship to Patient: Patient Registration Supervisor Name: Delivery Method: HAND - Hand Delivered Sheyla Days: Prior Verbal Notification: Recipient Understood Notice: Yes Recipient Signature: Yes Med Rec Note Co-signed by Attending: Coverage Notice Comment: MOCTEZUMA SERVED, EXPLAINED, AND SIGNED BY PATIENT. THE ORIGINAL WAS PROVIDED TO THE PATIENT AND COPY PLACED ON CHART. Last DP export: 05/04/20 9:40 a Patient Name: GARCIA MÁRQUEZ Page [id number] at 1748 All edits/amendments must be made on the electronic document DICTATION DATE: 05/04/201747 POWER SUPPLY ENGINEER: MATHEW 05/04/201747 RPT#: [id number] DC DATE:05/04/20 STATUS: DIS IN [facility] [address] [place] [address] END OF REPORT
== END 2020-05-04 13:18 | disposition home or self-care (01) | DRG 313 ==
LOC: D.ER 05:58 → D.M2 07:41 → OBSVTIME 07:41 → D.EDHOLD 07:41 → D.M2 18:43
PROVIDERS: Family Medicine; ADMIT Family Medicine; ATTEND Family Medicine
DX: R07.9 Chest pain, unspecified (principal); B37.49 Other urogenital candidiasis; E88.81 Metabolic syndrome and other insulin resistance; I10 Essential (primary) hypertension; E78.5 Hyperlipidemia, unspecified; I48.91 Unspecified atrial fibrillation; I25.119 Atherosclerotic heart disease of native coronary artery with unspecified angina pectoris; E11.40 Type 2 diabetes mellitus with diabetic neuropathy, unspecified; Z95.0 Presence of cardiac pacemaker